=== PATIENT | female | born 1940 | race Caucasian/White ===

== ENCOUNTER → 2017-03-27 13:14 | Outpatient (CLI) | payer MEDICARE, OTHER ==
[2016-04-20 09:37] VITALS: BMI 24.6
[~2017-03-27 13:14] MED LIST: CALCIUM 600+D T1 TA1 PO; CARAFATE1 G/10 ML PO; CYCLOBENZAPRINE10 MG PO; FLORINEF 0.1 M0.1 MG PO; FLUTICASONE PRO16 GM NASAL; LISINOPRIL10 MG PO; MIRALAX17 GM PO; MOBIC7.5 MG PO; NEURONTIN600 MG PO; OMEGA 3 FISH OI1 CAP PO; PRILOSEC20 MG PO; SYNTHROID88 MCG PO; ZANAFLEX4 MG PO; ZESTORETIC 20/21 TAB PO
== END | disposition home or self-care (01) ==
LOC: D.CT 13:14
DX: M51.37 Other intervertebral disc degeneration, lumbosacral region (principal)

== ENCOUNTER 2017-05-20 05:35 | Inpatient (IN) | payer MEDICARE, OTHER ==
[2017-05-19 14:26] LABS: ANION GAP 11.8 mmol/L (8-16); CALCIUM 8.8 mg/dL (8.5-10.1); CARBON DIOXIDE 26.2 mmol/L (21.0-32.0); CREATININE - SERUM 1.5 mg/dL (0.6-1.3)
[2017-05-19 16:08] LABS: BASOPHILS 0.2 % (0-2); EOSINOPHILS 1.4 % (0-7); HEMATOCRIT 36.9 % (36.0-48.0); HEMOGLOBIN 11.7 g/dL (12-16); IMMATURE GRANULOCYTES 0.2 % (0-5); LYMPHOCYTES 26.7 % (15-50); MCH 29.1 pg (26.0-34.0); MCHC 31.7 g/dL (31.0-37.0); MCV 91.8 fL (80.0-100.0); MEAN PLATELET VOLUME 10.9 fL (7.4-10.4); MONOCYTES 7.2 % (2-11); NEUTROPHILS 64.3 % (40-80); RBC 4.02 10x6/uL (4.00-5.40); RDW 12.6 % (11.5-14.5); WBC 5.6 10x3/uL (4.8-10.8)
[2017-05-19 16:10] LABS: PLATELET COUNT 179 10x3/uL (130-400)
[2017-05-20] VITALS (14 sets, daily range): BP systolic 76–134; BP diastolic 32–68; BMI 24.3
[~2017-05-20] VITALS: Ht 170.2 cm; Wt 70.8 kg
[2017-05-20] MEDS ORDERED: MAG 6464 MG PO (06:03)
[2017-05-20] MEDS ORDERED: SUPER B COMPLE150 MG PO (06:04)
--- NOTE | 2017-05-20 09:42 | NUR ---
[address] DR FLOWERS AND DR LAMBERT PRESENT WITH POSITIONING OF PATIENT, PATIENTS ARM CROSSED OVER CHEST PADDED AND SECURED NO IMPINGEMENT NOTED, DR FLOWERS AND DR LAMBERT POSITIONED ARMS, TWORLEY. D5LR USED IN WARMING TRAY FOR BONE GRAFT THAWING, JIA.
--- NOTE | 2017-05-20 12:48 | NUR ---
DR. FRITZ AND DR JENKINS NOTIFIED REGARDING PATIENTS INABILITY TO RAISE HEAD AND SPEAK. DR JENKINS CHECKED TWITCHES, 4 TWITCHES NOTED. PATIENT PLACED ON CO2 MONITOR.
--- NOTE | 2017-05-20 13:44 | NUR ---
PATIENT HAS RECEIVED DEMEROL 25 AND DILAUDID 1 MG. PAIN STILL RATED AN 8/10. PROF NURSING JUDGEMENT TO NOT GIVE MORE PAIN MEDICATION DUE TO BP ISSUES AND O2 ISSUES
[2017-05-20 14:53] LABS: APTT 43.6 SECONDS (22.8-39.4); INR 1.17 (0.85-1.17); PROTIME 14.8 SECONDS (11.6-15.0)
--- NOTE | 2017-05-20 15:00 | NUR ---
RECIEVED PT TO ROOM FROM RECOVERY. VSS. FULL ASSESSMENT COMPLETE PER FLOWSHEET. REFER FOR DETAILS. CALL LIGHT IN REACH. BED IN LOW POSITION.
[2017-05-20 15:13] LABS: BASOPHILS 0 % (0-2); EOSINOPHILS 0.1 % (0-7); HEMATOCRIT 32.5 % (36.0-48.0); HEMOGLOBIN 10.4 g/dL (12-16); IMMATURE GRANULOCYTES 0.2 % (0-5); LYMPHOCYTES 3.9 % (15-50); MCH 29.3 pg (26.0-34.0); MCV 91.5 fL (80.0-100.0); MEAN PLATELET VOLUME 10.6 fL (7.4-10.4); MONOCYTES 1.2 % (2-11); NEUTROPHILS 94.6 % (40-80); PLATELET COUNT 158 10x3/uL (130-400); RBC 3.55 10x6/uL (4.00-5.40); RDW 12.5 % (11.5-14.5)
[2017-05-20 15:14] LABS: WBC 10.8 10x3/uL (4.8-10.8)
--- NOTE | 2017-05-20 15:30 | NUR ---
MORPHINE BATCHING OPERATOR PUMP SET UP AND IN REACH OF PT.
--- NOTE | 2017-05-20 17:30 | NUR ---
DAUGHTER AT BEDSIDE. STATES PAIN HAS IMPROVED FROM A RATE OF 10 TO 5 ON THE NUMERIC SCALE. STATES SHE STILL HAS A LOT OF PAIN WITH MOVEMENT OF LOWER EXT'S. DENIES NEEDS AT THIS TIME. WILL CONT TO ASSESS.
--- NOTE | 2017-05-20 19:30 | NUR ---
REPORT RECEIVED AND CARE ASSUMED. INITIAL SHIFT ASSESSMENT COMPLETED SEE FLOWSHEET. PT AAOX 4 SPEECH CLEAR. STATES SHE HAS PAIN BUT IS ALWAYS IN PAIN AND ITS NOT FROM SURGURY. NOTE STERI STRIP TO LOWER ABD WITH SCANT AMOUNT OF DRIED BLOOD. NO ACTIVE OR RECENT BLEEDING. NO EVIDENCE OF BLEEDING. NOTE B/P HAS BEEN RUNNING LOW WILL MONITOR CLOSELY AND NOTIFY PHYSICIAN IF THIS DOES NOT RESOLVE. PT IS CURRENTLY ON 4L O2. DOES NOT WEAR O2 AT HOME. REDUCED O2 TO 2L WILL MONITOR FOR SPO2 VALUES. DOES HAVE NS AT 30ML RUNNING PRIMARY FLUID FOR MS PUBLICITY EXPERT. PT STATES SHE IS NOT NEEDING THE PUBLICITY EXPERT AT THIS TIME. DID JUST HAVE VISITORS AT BEDSIDE. DENIES NAUSEA PROVIDED WITH FRESH TEA PER REQUEST AND WATER. ENCOURAGED TO DRINK. NOTE IVF AND IV LINES ARE APPROPRIATELY DATED AND LABELED AND NOT DUE TO BE CHANGED AT THIS TIME. PT CONTINUES TO BE MONITORED PER STANDARD CVICU PROTOCOL WITH ALL ALARMS SET AND VERIFIED.
--- NOTE | 2017-05-20 21:10 | NUR ---
SPOKE WITH SANDY AVILA APN REGARDING LOW SBP REPORTED LAST HOUR SBP 87,79,86,76 PT ASYMPTOMATIC AND HAS NOT BEEN USING HER MS WEB MARKETING ASSISTANT NEW ORDERS TO BOLUS WITH 500CC NS AND RETURN CALL IF NOT EFFECTIVE
--- NOTE | 2017-05-20 22:39 | NUR ---
SPOKE WITH DR. FLOWERS TO REPORT CONTINUATION OF LOW B/P CURRENT VS 77/35 HR 90 96% 2LO2 RESP 18. NEW ORDERS TO GIVE 1L NS BOLUS AND CALL BACK IF SBP <90
[2017-05-21] VITALS (26 sets, daily range): BP systolic 85–175; BP diastolic 33–72; BMI 25.3
--- NOTE | 2017-05-21 00:15 | NUR ---
CALL PLACED TO DR. FLWOERS TO NOTIFY OF VS AND URINE OUTPUT VS INTAKE
--- NOTE | 2017-05-21 00:45 | NUR ---
2ND PAGE TO DR. FLOWERS TO NOTIFY HIM OF PT'S RESPONSE TO FLUID CHALLENGE. VS REPORTED OF 87/36 HR 85 URINE OUTPUT ON THIS SHIFT 250 WITH 100CC SINCE LAST FLUID CHALLENGE AND 750 TOTAL SINCE SURGERY REPORTED ON THIS UNIT. INTAKE AHS BEEN 1740 IV WITH 390 PO TOTAL OF 2130CC REPORTED SINCE SURGERY. NEW ORDERS RECEIVED AND NOTED. PT TEACHING DONE HAS BEEN DONE WITH EACH INTERVENTION WITH GOOD COMPREHENSION NOTED.
--- NOTE | 2017-05-21 03:00 | NUR ---
REASSESSMENT COMPLETED SEE FLOWSHEET. PT HAS NOT SLEPT THIS SHIFT AND IS BEGINNING TO SHOW SIGNS OF CONFUSION. PT REASSURED AND REORIENTATED TO SITUATION WITH ONLY MINIMALLY NOTED OUTCOME. PT REMAINED SOMEWHAT FRETFUL ABOUT CLOTHING AND KEYS AND ROOMS. ABLE TO STATE YEAR, PLACE AND WHY SHE IS IN THE HOSPITAL BUT CONFUSED ABOUT WHAT SHE IS TO DO NOW. B/P HAS BEEN WITHIN ACCEPTABLE LIMITS MARGINALLY. PT DENIES PAIN AND HAS NOT USED MS EDITOR CONTINUITY AND SCRIPT ANY THIS SHIFT. WILL CONTINUE TO MONITOR CLOSELY AND PROVIDE SUPPORT
--- NOTE | 2017-05-21 04:00 | NUR ---
PT WITH EYES CLOSED RESP REG AND NONLABORED. I&O COMPLETED AND CHARTED
--- NOTE | 2017-05-21 04:17 | NUR ---
NOTE WEIGHT IS A GAIN BUT NOTE PREVIOUSLY CHARTED WEIGHT IS STATED. THIS IS PER BEDSCALE. NO EDEMA AND LUNGS REMAIN CTA DIMINSHED SLIGHTLY IN BASES ESSENTIALLY NO CHANGE POST FLUID BOLUS
--- NOTE | 2017-05-21 04:27 | NUR ---
DR. FLOWERS CALLED TO CHECK ON PT. ORDER TO REPEAT A 500CC NS BOLUS AND TO GET PT UP IN CHAIR THIS MORNING. ORDERED TO HAVE PHYSICAL THERAPY EVALUATE PT WELL
--- NOTE | 2017-05-21 05:00 | NUR ---
PT ASSISTED X 2 ASSIST UP IN CHAIR AFTER RECEIVING COMPLETE BED BATH. PT TRANSFERRED WELL WITH STEADY GAIT. CALL LIGHT LEFT IN REACH
--- NOTE | 2017-05-21 06:00 | NUR ---
PT WITH BOWEL URGENCY. CONTINENT OF MED LOOSE BROWN STOOL ON BSC BUT STATED "I FEEL DRUNK" NOTE PT'S COLOR IS PALE AND SHE IS WEAK. ASSISTED BACK TO BED CALL LIGHT LEFT IN REACH.
--- NOTE | 2017-05-21 07:15 | NUR ---
PT ALERT AND ORIENTED X4 WITH CONFUSION NOTED, BELIEVES SHE IS HERE FOR VOMITING, THEN ASKED IF SHE REMEMBERS HER SURGERY SHE STATED "OH YEAH AND MY BACK SURGERY" FLUID BOLUS ORDERED PER DR FLOWERS, BOLUSED REMAINING NS AND NEW BAG STARTED PER EMAR, O2 2L NC, ALL OTHER VSS, REPOSITIONED, WILL C ONTINUE TO MONITOR
[2017-05-21 08:49] LABS: BASOPHILS 0 % (0-2); EOSINOPHILS 0 % (0-7); IMMATURE GRANULOCYTES 0.2 % (0-5); LYMPHOCYTES 13.1 % (15-50); MCH 28.8 pg (26.0-34.0); MCHC 31.4 g/dL (31.0-37.0); MCV 91.7 fL (80.0-100.0); MONOCYTES 11.9 % (2-11); NEUTROPHILS 74.8 % (40-80); RBC 2.05 10x6/uL (4.00-5.40); RDW 12.7 % (11.5-14.5)
[2017-05-21 08:50] LABS: HEMATOCRIT 18.8 % (36.0-48.0); HEMOGLOBIN 5.9 g/dL (12-16); PLATELET COUNT 124 10x3/uL (130-400); WBC 6.5 10x3/uL (4.8-10.8)
--- NOTE | 2017-05-21 08:50 | NUR ---
LAB CALLED CRITICAL HGB 5.9 HCT 18.7, DR FLOWERS IN ROOM AND MADE AWARE, NEW ORDERS TO REDRAW AND IF HCT LESS THAN 25 2 UNITS PRBC AND TYPE AND CROSS, LAB JUST CALLED WITH HGB 5 AND HCT 18, DR LAMBERT CALLED AFTER ADMINISTERING MORNING LOVENOX WITH NEW ORDERS TO DISCONTINUE LOVENOX, DISCUSSED PT BP AND FLUID BOLUSES THROUGH NIGHT, WILL CONTINUE TO MONITOR
--- NOTE | 2017-05-21 09:54 | NUR ---
ATTEMPTED TO START 20G PIV TO RFA, NO SUCCESS, NO VEINS VISIBLE OR PALPABLE, VASCULAR ACCESS NURSE PAGED TO ATTEMPT
--- NOTE | 2017-05-21 11:01 | NUR ---
20G PIV INSERTED TO RIGHT HAND AND PRBCS STARTED AT 1000 AFTER VERIFYING WITH ANOTHER NURSE AND ENSURING CONSENT SIGNED ON CHART, DAUGHTER IN ROOM AND AWARE, VSS,DENIES PAIN, LUNG SOUNDS CLEAR, NO FEVER NOTED, WILL CONTINUE TO MONITOR
--- NOTE | 2017-05-21 13:00 | NUR ---
PRBCS INFUSING WITH NO ADVERSE REACTIONS NOTED, DENIES PAIN AND ALL NEEDS, SPOKE WITH DR CURIEL, BRECARMELINA AND PACE THIS AM AND VERIFIED PT TO HAVE A TOTAL OF 3 UNITS OF PRBCS, ALSO DISCUSSED WITH BLOOD BANK WHEN PICKING UP BLOOD, SPOKE WITH CT TO VERIFY THEY ARE AWARE OF CT ORDER, PT REFUSES REPOSITIONING ONTO SIDES AT THIS TIME, WILL CONTINUE TO MONITOR
--- NOTE | 2017-05-21 13:46 | NUR ---
SECOND UNIT OF PRBCS INFUSING, DENIES PAIN, NO ADVERSE REACTIONS NOTED, AFEBRILE, LUNCH SOULDS CLEAR, DIMINISHED IN LOWER LOBES, WILL CONTINUE TO MONITOR
--- NOTE | 2017-05-21 14:58 | NUR ---
PRBCS INFUSING, NO SIGNS OF ADVERSE REACTIONS, AFEBRILE, ATTEMPTED TO GET OUT OF BED AND "GO HOME" BUT APPEARED TO JUST BE MOMETARY CONFUSION SHE THEN STATED "WELL I KNOW I HAD SURGERY SO I GUESS I SHOULD STAY"
--- NOTE | 2017-05-21 15:25 | NUR ---
PT TO CT WITH STAFF
--- NOTE | 2017-05-21 17:02 | NUR ---
SPOKE WITH DR CURIEL, PT CT SHOWS RETROPERITONEAL BLEED, STAT H&H ORDERED, CALLED DR FLOWERS SPOKE WITH NURSE AWAITING CALL BACK
--- NOTE | 2017-05-21 17:21 | CN ---
PATIENT NAME:WON DOWELL MEDICAL RECORD: [id number] : 39 LOCATION:[id number] ADMIT DATE: 05/20/17 ACCOUNT: [id number] CONSULTING PHYSICIAN: GURWINDER CURIEL MD REFERRING PHYSICIAN: ZACKARY FLOWERS MD DATE OF CONSULTATION: 05/21/2017 HISTORY OF PRESENT ILLNESS: This is a very pleasant 76-year-old white female, who is in CV ICU 3 was admitted to the hospital for lumbar stenosis by Dr. Flowers and surgical intervention was obtained. Consultation has been requested for medical management. The patient has had a longstanding history of lumbar stenosis and difficulty ambulation. She underwent surgical revision with an anterior approach by Dr. Flowers yesterday. The patient is presently resting in the ICU comfortably, is getting transfused for low H&H and is in no acute distress, able to answer all questions and her family members are present as well. PAST MEDICAL HISTORY: Significant for hypertension, osteoarthritis, GERD, lumbar stenosis, hypothyroidism, chronic pain, hypothyroidism, neuropathy, dependent edema, osteopenia. PAST SURGICAL HISTORY: Includes trauma to her right index finger, appendectomy, cholecystectomy, low back fusion 10 years ago. ALLERGIES: THE PATIENT IS ALLERGIC TO AMOXICILLIN, BACLOFEN, AND HYDROCODONE. MEDICATIONS: Listed on MAR sheet. SOCIAL HISTORY: The patient does not smoke, does not drink any alcohol. FAMILY HISTORY: Does have a family history of diabetes. REVIEW OF SYSTEMS: Indicates no fever or chills. No neuropathy. She does have some pain in her back, but is controlled. Increased bruising recently postoperatively, otherwise no difficulty. PHYSICAL EXAMINATION: VITAL SIGNS: Vital signs at the time of history and physical as below. GENERAL: She is a well-developed, well-nourished, pleasant 76-year-old white female that is resting comfortably. Pale skin is noted. No acute distress. HEENT: Pupils equal, round, and reactive to light. Extraocular movements are intact. Oral cavity and oropharynx is otherwise clear. NECK: No cervical or pharyngeal adenopathy. No nuchal rigidity. LUNGS: Coarse breath sounds heard in the base, clears with coughing. HEART: Regular rate and rhythm with a I/ systolic ejection murmur. ABDOMEN: Soft and nontender. Guarding is present at the surgical insertion site. She has some bruising over the laparoscopic areas. Has evidence of some bruising. Positive bowel sounds. No masses. 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 Osteoarthritic changes noted, otherwise no difficulty. NEUROLOGIC: Cranial nerves II through XII grossly intact. Muscle strength in upper and lower extremities is 5/5. Sensory is intact in all 4 extremities. NEUROLOGIC: She is able to move all 4 extremities. ASSESSMENT: CONSULT REPORT [id number] DELMERMARKADINVinita WALLACE 1. Status post lumbar stenosis intervention by neurosurgery. 2. Anemia postoperatively. 3. Hypertension. 4. Hypothyroidism. 5. Osteoarthritis. 6. Bruising. PLAN: The patient will get transfused 2 units of packed red blood cells. We will monitor her fluid status. She has had several liters of fluid over the evening. We will check pulmonary toilet, check abdominal ultrasound for any retroperitoneal bruising, and check laboratory appropriately. Thanks for the consultation. TRANSINT:[id number] Voice Confirmation ID: [id number] DOCUMENT ID: [id number] GURWINDER CURIEL MD at 1721 CC: [id number] DICTATION DATE: 05/21/17 1102 SUPERVISOR SHIP MAINTENANCE SERVICES: 05/21/17 1120 ADM IN [facility] [address] [id number]
--- NOTE | 2017-05-21 17:30 | NUR ---
CALL RECEIVED FROM SANDY PEDRO OF DR. CURIEL WHO STATES TO KEEP 3 UNITS PRBC AHEAD AT ALL TIMES. GER IN BLOOD BANK NOTIFIED OF THIS
--- NOTE | 2017-05-21 17:32 | NUR ---
AGAIN CALLED DR [facility] WITH NO ANSWER, CALLED [facility] AND THEY ARE PAGING DR FLOWERS
--- NOTE | 2017-05-21 17:44 | NUR ---
SPOKE WITH DR FLOWERS WHO SAID CALL DR LAMBERT BUT GAVE NO NEW ORDERS. PAGED FAUSTO.
--- NOTE | 2017-05-21 17:54 | NUR ---
DR LAMBERT RETURNED CALL NO NEW ORDERS
--- NOTE | 2017-05-21 17:55 | NUR ---
DR FLOWERS CALLED AFTER LOOKING AT CT, SAID HE SAW NOTHING OF CONCERN
[2017-05-21 18:17] LABS: HEMOGLOBIN 7.4 g/dL (12-16)
[2017-05-21 18:18] LABS: HEMATOCRIT 22.7 % (36.0-48.0)
--- NOTE | 2017-05-21 18:43 | NUR ---
SPOKE WITH SANJEEV PEDRO ABOUT CRITICAL HGB 7.4 AND JUST BEGINNING THIRD BAG OF PRBCS, SHE STATED TO REDRAW H&H AFTER ADMINISTERING BAG. WHEN ON THE PHONE WITH DR FLOWERS AND FAUSTO DISCUSSED INCREASING CONFUSION PT THINKS SHE NEEDS IN ANOTHER BED AND ATTEMPTS TO SELF TRANFER, PT REORIENTED AND DAUGHTER AT BEDSIDE, DENIES PAIN, HAS NOT BEEN USING MORPHINE GIS GEOGRAPHER, VSS, BED ALARM ON, WILL CONTINUE TO MONITOR
--- NOTE | 2017-05-21 20:00 | NUR ---
DR. LAMBERT ON UNIT DISCUSSED INCREASING CONFUSION, HALLUCINATION, AGGITATION AND ANXIETY NEW ORDERS RECEIVED AND NOTED
--- NOTE | 2017-05-21 20:44 | NUR ---
PT HAS COMPLETED HER 3RD UNIT OF PRBC LAB NOTIFIED OF NEED FOR H&H WELL PLATLETTS AND FFP. DAUGHTER IS AT BEDSIDE PT IS SEVERELY CONFUSED. INSISTS SHE IS AT HOME ON THE COUGH. WAS TRYING TO PUT SPO2 DETECTOR IN MOUTH SAYING SHE WAS TRYING IT ON FOR SIZE. ATTEMPTING TO CLIMB OUT OF BED AND PULLING AT WIRES AND LINES. BED ALARM IS ON DAUGHTER IS AT BEDSIDE AND BED IS DIRECT VISION OF NURSES STATION. ENVIRONMENT IS MADE QUIET AND CALM POSSIBLE AND PT REPEATEDLY REORIENTATED TO REALITY WITH NO SUCCESS NOTED.
--- NOTE | 2017-05-21 21:15 | NUR ---
DR. LAMBERT CALLED AND DISCUSSED THE ELEVATING OF CONFUSION, ANXIETY AND HR 140'S-150'S RELATED TO AGGIATION AND ANXIETY. NEW ORDERS RECEIVED AND NOTED. DAUGHTER IN ROOM. PT AND DAUGHTER MADE AWARE OF ORDERS
[2017-05-21 21:28] LABS: HEMATOCRIT 32.2 % (36.0-48.0); HEMOGLOBIN 10.7 g/dL (12-16)
--- NOTE | 2017-05-21 22:40 | NUR ---
SPOKE WITH DR. FLOWERS TO NOTIFY THAT HR 150'S SVT INCREASED AGGITATION AND IRRITATION WITH ONLY SHORT MINIMAL RESPONSE TO HALDOL. NEW ORDERS RECEIVED AND NOTED
[2017-05-22] VITALS (24 sets, daily range): BP systolic 113–155; BP diastolic 47–91
--- NOTE | 2017-05-22 01:13 | NUR ---
PT CONTINUES WITH AGITATION AND ANXIETY AND UNABLE TO REDIRECT. CONTINUES TO BE DISORIENTATED AND ATTEMPTING TO GET OOB ORDERS TO REPEAT THE VALIUM 5MG X [address] FLOWERS FOLLOWED PER HIS INSTRUCTIONS
--- NOTE | 2017-05-22 01:40 | NUR ---
PT CONTINUES TO HAVE SEVERE AGITAITON. CALL PLACED TO DR. FLOWERS TO NOTIFY PREVIOUS MEDS INEFFECTIVE. NOTIFIED PT WITH HR 150'S SVT, WHEN PT CALMS DOWN AND HEART RATE DROPS IN 130'S IT IS SINUS TACHYCARDIA. PT IS TOO RESTLESS AND AGITATED TO ALLOW FOR EKG AT THIS TIME. PT REPORTED TO HAVE HAD A TOTAL OF 14MG MORPHINE, HALDOL 5MG AND VALIUM 10MG. LAST DOSE OF HALDOL APPROX 2130. NEW ORDERS RECEIVED AND NOTED.
--- NOTE | 2017-05-22 01:50 | NUR ---
PT HAS BEEN GIVEN HALDOL IM SPO2 < 90% O2 APPLIED AND CHANGED TO OXIMIZER. PT REMAINS AGGITATED AND COMBATIVE. HAS BEEN A 1:1 CARE THIS ENTIRE SHIFT DUE TO HER AGITATION AND INABILITY TO MAINTAIN PERSONAL SAFETY WITHOUT CONSTANT SUPERVISION AND INTERVENTION.
--- NOTE | 2017-05-22 03:30 | NUR ---
PT PLACED IN BILAT WRIST RESTRAINTS, PT REPEATEDLY REMOVING EQUIPMENT NECESSARY TO MAINTAIN AND IMPROVE CARE. EXPLAINED TO PT WHO DOES NOT VERBALIZE COMPREHENSION
--- NOTE | 2017-05-22 03:35 | NUR ---
CALL PLACED TO DR. CURIEL TO DISCUSS CONTINUED ELEVATED HR. EKG HAS BEEN DONE WHICH SHOWS ST. CALL RETURNED BY SANJEEV AVILA APN THOROUGHLY DISCUSSED PT'S EVENING, NEW ORDERS RECEIVED, MEDS GIVEN AND PT'S CURRENT STATE OF CONTINUED AGGITAION BUT ON A DECREASED LEVEL, O2 SAT BEING MAINTIANTED AT THIS TIME PER OXIMER 15L. ORDERS RECEIVED TO DO H&H AND GIVE ATIVAN 0.5 IV
--- NOTE | 2017-05-22 03:40 | NUR ---
CALL PLACED TO DR. FLOWERS TO VERIFY ORDERS RECEIVED AND UPDATE ON PT'S CONDITION AND RESPONSE TO MEDICATIONS. NEW ORDERS RECEIVED TO NOT GIVE THE ATIVAN BUT TO GIVE HALDOL 2.5 IM AND LOPRESSOR.
--- NOTE | 2017-05-22 03:56 | NUR ---
HALDOL 2.5MG IM HELD AT THIS TIME. PT DOES CONTINUE WITH SOME AGGITATION BUT IN A LESSER DEGREE WILL MONITOR
[2017-05-22 04:01] LABS: BASOPHILS 0 % (0-2); EOSINOPHILS 0 % (0-7); HEMATOCRIT 30.1 % (36.0-48.0); HEMOGLOBIN 10.1 g/dL (12-16); IMMATURE GRANULOCYTES 0.4 % (0-5); LYMPHOCYTES 8.9 % (15-50); MCH 29.9 pg (26.0-34.0); MCHC 33.6 g/dL (31.0-37.0); MCV 89.1 fL (80.0-100.0); MEAN PLATELET VOLUME 10.1 fL (7.4-10.4); MONOCYTES 7.1 % (2-11); NEUTROPHILS 83.6 % (40-80); PLATELET COUNT 146 10x3/uL (130-400); RBC 3.38 10x6/uL (4.00-5.40); WBC 7.8 10x3/uL (4.8-10.8)
[2017-05-22 04:08] LABS: INR 1.04 (0.85-1.17); PROTIME 13.5 SECONDS (11.6-15.0)
[2017-05-22 04:09] LABS: APTT 29.6 SECONDS (22.8-39.4)
--- NOTE | 2017-05-22 04:12 | NUR ---
CALL PLACED TO DR. FLOWERS TO DISCUSS PT'S CONDITION HR 145-150, B/P 143/73, O2 SAT 88-90% 15L OXIMIZER, LUNGS BEGINING TO SOUND "WET" _303 FLUID BALANCE AND THE WITHHOLDING OF THE LAST ORDERED HALDOL. NEW ORDERS RECEIVED AND NOTED
--- NOTE | 2017-05-22 04:15 | NUR ---
DECREASED IVF TO 10ML/HR
[2017-05-22 04:27] LABS: ALBUMIN 3.2 g/dL (3.4-5.0); ANION GAP 14.9 mmol/L (8-16); BILIRUBIN - TOTAL 0.9 mg/dL (0.2-1.3); CALCIUM 8.4 mg/dL (8.5-10.1); CARBON DIOXIDE 23.1 mmol/L (21.0-32.0); CREATININE - SERUM 1.2 mg/dL (0.6-1.3); PROTEIN - SERUM 6.1 g/dL (6.4-8.2); THYROID STIMULATING HORMONE 1.9 uIU/mL (0.36-3.74)
--- NOTE | 2017-05-22 04:30 | NUR ---
RT CALLED TO BEDSIDE UNABLE TO MAINTAIN ADEQUATE OXYGENATION WITH OXIMIZER PARTLY IN DUE TO PT REPEATEDLY REMOVING DEVICE AND TAKING TOO LONG TO RECOVER BACK TO ACCEPTABLE LEVELS. NRB PLACED. PT IS IN RESTRAINTS BUT REMAINS 1:1 FOR HER SAFETY
--- NOTE | 2017-05-22 05:57 | NUR ---
PT HAS HAD A 250ML URINE OUTPUT SINCE LASIX. LEFT LOBES SOUND CLEARER BUT RIGHT LOBES STILL WITH CRACKLES. PT REPOSTIONED FREQUENTLY UP IN BED. NURSE AT BEDSIDE TO PROVIDE SAFE PT CARE. PT CONTINUES TO ATTEMPT TO REMOVE EQUIPMENT IV, F/C, TELEMETRY, O2 ETC. DOES NOT UNDERSTAND NECESSITY FOR MAINTAINING SUCH
--- NOTE | 2017-05-22 06:54 | NUR ---
CALL PLACED TO MILTON RANDLE TO UPDATE ON PT'S CONDITION
--- NOTE | 2017-05-22 07:00 | NUR ---
REPORT RECIEVED ON PT SEE SHIFT ASSESSMENT
--- NOTE | 2017-05-22 07:15 | NUR ---
PT RECIEVED ALERT AND CONFUSED, ATTEMPTING TO CLIMB OUT OF BED, BILAT SOFT WRIST RESTRAINTS IN PLACE, WHEN REPOSITIONING PT AND ATTEMPTING TO REORIENT TO SITAUATION SHE STATED "KEEP IT UP BECAUSE IM GONNA SLAP YOUR FACE HARD I CAN" 100% NONREBREATHER IN PLACE, WHEN REMOVED OR LOWERED SPO2 DESATS INTO 70-80S, PIV TO RIGHT HAND AND LFA CDI, DENIES PAIN, REPOSITIONED AND LINENS CHANGED, HR 110'S SINUS TACH, VSS, WILL CONTINUE TO MONITOR
--- NOTE | 2017-05-22 07:20 | NUR ---
PAGED DR SWARTZ
--- NOTE | 2017-05-22 08:04 | NUR ---
SPOKE WITH DR SWARTZ WHO SAID TO CALL THE CLINIC TO PAGE GREETER DR, SPOKE WITH CLINIC WHO ARE PAGING DR TONY WHO IS GREETER
--- NOTE | 2017-05-22 09:04 | NUR ---
SPOKE WITH DR LAMBERT, UPDATED ABOUT LAST NIGHTS EVENTS AND CONITNUED CONFUSION AND COMBATIVE BEHAVIOR, NO NEW ORDERS
--- NOTE | 2017-05-22 09:19 | NUR ---
SPOKE WITH DR TONY WHO SAID DR CHURCHILL IS ACTIVITIES THERAPIST, PAGED DR CHURCHILL
--- NOTE | 2017-05-22 09:23 | NUR ---
CHANGED TO OXYMISER PER REQUEST, PT SPO2 96, IN ROOM AND WILL MONITTOR
--- NOTE | 2017-05-22 09:36 | NUR ---
PT DESAT INTO LOW 80S, REPLACED NONREBREATHER
--- NOTE | 2017-05-22 10:11 | NUR ---
SPOKE WITH DR CHURCHILL, ORDERS FOR 5MG LOPRESSOR NOW AND HE WILL REEVAL PT, SPOKE WITH DR FLOWERS- ORDERS TO DC GUM WORKER, CONSULT PSYCH AND PULMONOLOGY, FAXED CONSULT TO [facility] AND SPOKE WITH SPENCER TO CONFIRM, SPOKE WITH DR HUNTER, ORDERS FOR CXR AND ABGS, SPOKE WITH RT TO OBTAIN ABGS
--- NOTE | 2017-05-22 11:12 | NUR ---
PT HR 113, DR CURIEL SPOKE WITH PT AND FAMILY, AWARE OF ALL OF NIGHTS EVENTS, NO NEW ORDERS
--- NOTE | 2017-05-22 12:48 | NUR ---
* Is the patient Alert and Oriented? Yes 0 * How many steps to enter\exit or inside your home? 1 0 * PCP Dr. Lancaster 0 * [facility]acy [facility] 0 * Preadmission Environment Home Alone 0 * ADLs Independent 0 * List name and contact numbers for known caregivers / representatives who currently or will assist patient after discharge: Demetrius Ni [phone] 0 * Additional services required to return to the preadmission environment? Yes 0 * Can the patient safely return to the preadmission environment? Yes 0 * Has this patient been hospitalized within the prior 30 days at any hospital? No Patient Name: WON DOWELL Admission Status: Elective Accout number: [id number] Admission Date: 05-20-2017 : 1940 Admission Diagnosis:SPINAL STENOSIS, LUMBAR REGION WITHOUT NEUROGENIC SAVAGE Attending: ZACKARY FLOWERS Current LOS: 2 Primary Insurance: MEDICARE A & B Discharge Planning Comments: CM met with daughter, Carlene, at bedside to assess dc plans/needs. Carlene states patient lives alone and was independent with all ADL's prior to admission. She does not use any assistive devices for mobility and has not had home health services in the past. Daughter is open to rehab & home health options @ discharge if necessary. CM will follow & assist as needed. Dead Mail Checker: Becka Hamilton
--- NOTE | 2017-05-22 13:11 | NUR ---
PT HAS HAD FLUIDS OFFERED BUT IS INABLE TO KEEP NONREBREATHER OFF FOR MORE THAN A FEW SECONDS, PT DAUGHTER AT BEDSIDE AND UPDATE PROVIDED, READ DR COOPER NOTE THAT HE SUSPECTS THE CONFUSION WILL RESOLVE SHORTLY, PT REPOSITIONED, VSS, WILL CONTINUE TO MONITOR
--- NOTE | 2017-05-22 14:08 | NUR ---
TROPONIN 1.806, CALLED DR HUNTER HE ORDERED LAB AND DR CHURCHILL, WILL REDRAW IN [address] CHURCHILL
--- NOTE | 2017-05-22 15:20 | NUR ---
PT CHANGED TO OXYMYZER 15L TOLERATING WELL SPO2 75
--- NOTE | 2017-05-22 17:05 | NUR ---
PT REPOSITIONED, VSS, ATTEMPTED TO REOREINT, CONTIUES TO BE CONFUSED AND UNABLE TO ANSWER QUESTIONS BUT IS ABLE TO RESPOND APPROPRIATELY, FED DINNER, TOLERATED WELL, WILL CONTINUE TO MONITOR
--- NOTE | 2017-05-22 19:00 | NUR ---
REPORT REC'D. PATIENT CARE ASSUMED. ASSESSMENT COMPLETED PER FLOW SHEETS. PT AWAKE AND ALERT TO NAME, AND PLACE. FOLLOWS COMMANDS. DENIES ANY DISCOMFORT AT THIS TIME. LUNG SOUNDS CLEAR/ CRACKLES TO ULB WITH DIMINISHED TO LLB, UNLABORED. ST ON CM WITH HR AT 117. BS HYPOACTIVE X4 QUADR, TENDER AT INCISION SITE. BRUISES NOTED. FONTENOT INTACT TO GRAVITY WITH CL/Y DRAINAGE TO BAG. PPP. REORIENTED TO TIME AND SITUATION. CALL LIGHT IN REACH. CPOC.
--- NOTE | 2017-05-22 20:30 | NUR ---
PT'S DAUGHTER CALLED. UPDATED AND QUESTIONS ANSWERED.
--- NOTE | 2017-05-22 21:00 | NUR ---
NO VISITORS AT THIS TIME. REPOSITIONED FOR COMFORT. PILLOWS IN USE FOR SUPPORT. CALL LIGHT IN REACH. CONT TO MONITOR.
--- NOTE | 2017-05-22 21:55 | NUR ---
HEIDI DIE REPAIRER FORGING CALLED VIA PHONE REGARDING TROPONIN LEVEL. NO CALL BACK RECEIVED. CHARGE NURSE AWARE.
--- NOTE | 2017-05-22 23:00 | NUR ---
REASSESSMENT COMPLETED .SEE FLOW SHEETS FOR ALL FINDINGS. NO ACUTE SIGNS NOTED ON PT'S CONDITION. VSS. WILL CONT TO MONITOR.
[2017-05-23] VITALS (24 sets, daily range): BP systolic 116–149; BP diastolic 62–98
--- NOTE | 2017-05-23 01:00 | NUR ---
PT RESTING QUIETLY WITHOUT DISTRESS. VSS. NO NEEDS VOICES. CALL LIGHT IN REACH. CPOC.
--- NOTE | 2017-05-23 03:00 | NUR ---
REASSESSMENT COMPLETED. SEE FLOW SHEETS FOR ALL FINDINGS. PT RESTING WITHOUT DISTRESS. VSS. NO NEEDS VOICES AT THIS TIME. CPOC.
[2017-05-23 05:54] LABS: BASOPHILS 0 % (0-2); EOSINOPHILS 0.3 % (0-7); HEMATOCRIT 30.3 % (36.0-48.0); HEMOGLOBIN 10.1 g/dL (12-16); IMMATURE GRANULOCYTES 0.3 % (0-5); LYMPHOCYTES 10.4 % (15-50); MCH 29.9 pg (26.0-34.0); MCHC 33.3 g/dL (31.0-37.0); MCV 89.6 fL (80.0-100.0); MEAN PLATELET VOLUME 10.5 fL (7.4-10.4); MONOCYTES 8.7 % (2-11); NEUTROPHILS 80.3 % (40-80); PLATELET COUNT 145 10x3/uL (130-400); RBC 3.38 10x6/uL (4.00-5.40); RDW 14.5 % (11.5-14.5)
[2017-05-23 06:00] LABS: WBC 10.4 10x3/uL (4.8-10.8)
[2017-05-23 06:24] LABS: ANION GAP 12.7 mmol/L (8-16); CALCIUM 8.3 mg/dL (8.5-10.1); CARBON DIOXIDE 28.6 mmol/L (21.0-32.0)
[2017-05-23 06:27] LABS: POTASSIUM - SERUM 3.3 mmol/L (3.5-5.1)
--- NOTE | 2017-05-23 09:16 | NUR ---
DR. FLOWERS IN ROOM WITH PATIENT, DAUGHTER AT BEDSIDE.
--- NOTE | 2017-05-23 10:01 | CN ---
PATIENT NAME:WON DOWELL MEDICAL RECORD: [id number] : 38 LOCATION:[facility] ADMIT DATE: 05/20/17 ACCOUNT: [id number] CONSULTING PHYSICIAN: GARLAND GARRISON III, MD REFERRING PHYSICIAN: ZACKARY FLOWERS MD DATE OF CONSULTATION: 05/22/2017 FINDINGS: A pleasant 76-year-old white female who was admitted to the hospital for surgical intervention for chronic lumbar stenosis. Postoperatively, the patient has developed severe agitation and confusion consistent with postoperative delirium. The patient has been quite combative and agitated throughout the night and has required the use of p.r.n. neuroleptic and anxiolytic medications. At present time, she has p.r.n. Haldol and diazepam ordered. At the present time, the patient remains in soft wrist restraints because of her agitation and the fact that she has attempted to remove medical equipment. She has threatened to strike staff members as well. The patient has no documented previous psychiatric history. She does have several ongoing medical problems including hypertension, osteoarthritis, gastroesophageal reflux disease, hypothyroidism, and neuropathy. On exam today, the patient is fortunately in a quieter episode. She remains in restraints, but she orients well to the examiner. She is able to respond appropriately to very simple questions and statements. She, for example, recalls that Dr. Lancaster is her physician and describes him as a "very nice man." She complains that she does not have anything to eat at the moment. She remains confused as to her location. Mood at the moment is euthymic; however, throughout the night, the patient has been extremely irritable and volatile. Affect has been quite brittle. Speech as noted above. Content of thought has exhibited some nonspecific paranoid ideation. The patient is oriented to person and the fact that she is in the hospital. She is not correctly oriented as to the day of the week. Intermediate and short-term recall are showing some significant deficits at the moment. DIAGNOSTIC IMPRESSION: AXIS I: Postoperative delirium, multiple factors involved including the stress of surgery, anemia, and hypoxia. RECOMMENDATIONS: 1. Would continue on with the current treatment plan in terms of p.r.n. Haldol and diazepam. I suspect that the patient will resolve within a few days if she follows the typical course. 2. We will be happy to follow with you. TRANSINT:[id number] Voice Confirmation ID: [id number] DOCUMENT ID: [id number] CONSULT REPORT [id number] WON DOWELL III, GARLAND Oneill MD at 1001 CC: [id number] DICTATION DATE: 05/22/17 1241 REWINDER: 05/22/17 1301 ADM IN [facility] [address] [place] [address]
--- NOTE | 2017-05-23 10:14 | NUR ---
PATIENT UP TO CHAIR PER PHYSICAL THERAPY, AND TOLERATED WELL.
--- NOTE | 2017-05-23 13:00 | NUR ---
REHAB NOTE- ACUTE INPATIENT REHAB PRESCREEN ORDER RECEIVED. VISITED WITH THE PATIENT & FAMILY PRESENT IN ROOM. SHE IS VERY INTERESTED IN [facility] WHEN READY FOR DISCHARGE FROM THE ACUTE HOSPITAL. THE FAMILY STATED THEY BELIEVED IT WOULD BE FRIDAY. WILL AWAIT AND SEE HOW THE PATIENT DOES PHYSICALLY WITH PHYSICAL THERAPY. WILL CONTINUE TO FOLLOW AT THIS TIME. CHERY GALLEGOS RN CLINICAL LIAISON, [facility]
--- NOTE | 2017-05-23 16:56 | EC ---
PATIENT:WON DOWELL DATE OF SERVICE: 05/20/17 SEX: F MEDICAL RECORD: [id number] DATE OF : 39 LOCATION:[place] [address] AGE OF PATIENT: 76 ADMISSION DATE: 05/20/17 REFERRING PHYSICIAN: INTERPRETING PHYSICIAN: KI HARMON MD ECHOCARDIOGRAM REPORT ECHO CHARGES 4 ECHO COMPLETE CLINICAL DIAGNOSIS: CHF ECHOCARDIOGRAPHIC MEASUREMENTS (adult normal given) AC root (d.<3.7cm) 3.2 cm LV Septum d (<1.2 cm> 1.2 cm Valve Excursion 1.3 cm LV Septum (systole) 1.3 cm Left Atria (s.<4.0cm> 4.1 cm LVPW d(<1.2cm) 1.1 cm RV (d.<2.3cm) 3.1 cm LVPW (sytole) 1.2 cm LV diastole(<5.6CM) 6.4 cm MV E-F(>70mm/sec) cm LV systole 5.7 cm LVOT Diameter 2.0 cm MV exc.(>10mm) cm Est.ejection fraction (50-75%) % Pericardial Effusion N DOPPLER: LVIT cm/sec A 107 cm/sec E cm/sec LA cm/sec RVSP 37 mmHg LVOT 84 cm/sec AOP1/2T m/s Asc. Ao 73 cm/sec RVOT cm/sec RA cm/sec PA cm/sec AV Gradient Peak 2.11 mmHg AV Mean 0.97 mmHg AV Area 4.3 cm MV Gradient Peak mmHg MV Mean mmHg MV Area cm COMMENTS: Cardiac Cath Technician: Toño DUQUE Core Winder: 2 Dr. Welsh TAPE# PACS DATE OF SERVICE: 05/22/2017 PROCEDURE: Echocardiogram. FINDINGS: 1. Left ventricular chamber size is mildly dilated. Left ventricular systolic function is markedly reduced, overall ejection fraction 15% to 20%. 2. Left atrium is enlarged at 4.1 cm. Right atrium and right ventricular chamber sizes are as well mildly dilated. 3. Valvular structures have normal structure and motion. ECHOCARDIOGRAM REPORT [id number] WON DOWELL 4. Doppler interrogation reveals fcil-zl-[id number] mitral regurgitation, mild to moderate tricuspid regurgitation, no other valvular insufficiency or stenosis. Pulmonary systolic pressure is normal estimated at 37 mmHg. 5. No evidence of pericardial effusion or left ventricular thrombus. TRANSINT:[id number] Voice Confirmation ID: [id number] DOCUMENT ID: [id number] KI HARMON MD at 1656 CC: [id number] DICTATION DATE: 05/22/17 1332 SENIOR CONSTRUCTION PROJECT MANAGER: 05/22/17 1342 ADM IN [facility] [address] [place] [id number]
--- NOTE | 2017-05-23 19:30 | NUR ---
REPORT RECVD. CARE ASSUMED. INITIAL ASSMNT COMPLETED. SEE FLOWSHEET FOR ALL FINDINGS. AWAKE AND AOX4. PERRLA. RESP EVEN AND UNLABORED. LUNGS CTA, DIM IN BASES. SPO2 97% ON O2 AT [address] ON THE MONITOR. PULSES PALP. TEDS/SCDS IN USE. AFEBRILE. ABD SOFT, BS HYPO X4. INCISION INTACT. F/C PATENT WITH CLEAR YELLOW UOP. HOB UP. C/L IN REACH. CONT CURRENT POC.
--- NOTE | 2017-05-23 20:00 | NUR ---
K+ LEVEL WITHIN PARAMETERS RECHECK IN AM
--- NOTE | 2017-05-23 21:00 | NUR ---
SPOKE WITH DAUGHTER, RAZIA, VIA PHONE. UPDATE GIVEN, REPOSITIONED PT SIDE LYING, PRN ULTRAM GIVEN FOR INCREASED PAIN AND TO PROMOTE REST. VSS. HOB UP. C/L IN REACH. CONT CURRENT POC.
--- NOTE | 2017-05-23 23:30 | NUR ---
REASSESSMENT COMPLETED. SEE FLOWSHEET FOR ALL FINDINGS. RESTING.AOX4. PERRLA. RESP EVEN AND UNLABORED. LUNGS CTA, DIM IN BASES. SPO2 97% ON O2 AT [address] ON THE MONITOR. PULSES PALP. TEDS/SCDS IN USE. AFEBRILE. ABD SOFT, BS HYPO X4. INCISION INTACT. F/C PATENT WITH CLEAR YELLOW UOP. DENIES NEEDS/DISCOMFORT. HOB UP. C/L IN REACH. CONT CURRENT POC.
[2017-05-24] VITALS (24 sets, daily range): BP systolic 97–138; BP diastolic 48–80
--- NOTE | 2017-05-24 01:15 | NUR ---
ATTEMPING TO KEEP PT POSITIONED OFF OF BACK. EACH TIME I RETURN TO ROOM PT HAS POSITIONED SELF ON BACK. STATES, " I DO NOT LIKE LAYING ON MY SIDE. IT HURTS MY HIPS. " TEACHING R/T SKIN INTEGRITY. VERBALIZES UNDERSTANDING. VSS. HOB UP. DENIES NEEDS. CONT CURRENT POC.
--- NOTE | 2017-05-24 02:30 | NUR ---
REFUSED TYLENOL PO. STATES, "I DO NOT WANT THAT RIGHT NOW. I WANT TO SLEEP. LEAE ME BE. "
[2017-05-24 04:22] LABS: BASOPHILS 0 % (0-2); HEMATOCRIT 31.5 % (36.0-48.0); HEMOGLOBIN 10.6 g/dL (12-16); IMMATURE GRANULOCYTES 0.1 % (0-5); LYMPHOCYTES 12.4 % (15-50); MCH 30.1 pg (26.0-34.0); MCHC 33.7 g/dL (31.0-37.0); MCV 89.5 fL (80.0-100.0); MEAN PLATELET VOLUME 10.7 fL (7.4-10.4); MONOCYTES 10.1 % (2-11); NEUTROPHILS 75.4 % (40-80); PLATELET COUNT 165 10x3/uL (130-400); RBC 3.52 10x6/uL (4.00-5.40); RDW 14.4 % (11.5-14.5); WBC 8.2 10x3/uL (4.8-10.8)
[2017-05-24 05:06] LABS: ALBUMIN 2.6 g/dL (3.4-5.0); ANION GAP 12.3 mmol/L (8-16); BILIRUBIN - TOTAL 0.93 mg/dL (0.2-1.3); CALCIUM 8.9 mg/dL (8.5-10.1); CARBON DIOXIDE 27.2 mmol/L (21.0-32.0); POTASSIUM - SERUM 3.5 mmol/L (3.5-5.1); PROTEIN - SERUM 6.4 g/dL (6.4-8.2)
--- NOTE | 2017-05-24 05:29 | NUR ---
RESTING WITH EYES CLOSED. VSS. ST ON THE MONITOR. NO NEEDS VOICED. CONT CURRENT POC.
--- NOTE | 2017-05-24 19:15 | NUR ---
REPORT RECVD. CARE ASSUMED. INITIAL ASSMNT COMPLETED. SEE FLOWSHEET FOR ALL FINDINGS. AWAKE AND AOX4. PERRLA. RESP EVEN AND UNLABORED. LUNGS CTA, DIM IN BASES. SPO2 97% ON O2 AT 2 LPM NC. SR ON THE MONITOR. PULSES PALP. TEDS/SCDS IN USE. AFEBRILE. ABD SOFT, BS ACTIVE X4. INCISION INTACT. F/C PATENT WITH CLEAR YELLOW UOP. HOB UP. C/L IN REACH. CONT CURRENT POC.
--- NOTE | 2017-05-24 21:00 | NUR ---
HS MEDS GIVEN. PRN ULTRAM GIVEN FOR PAIN CONTROL AND TO PROMOTE REST. PER REQUEST, MINIMAL ASSIST TO CHAIR AT BEDSIDE. VSS. DAUGHTER, RAZIA, AT BEDSIDE. UPDATE GIVEN. CONT CURRENT POC.
--- NOTE | 2017-05-24 23:15 | NUR ---
REASSESSMENT COMPLETED. SEE FLOWSHEET FOR ALL FINDINGS. RESTING.AOX4. PERRLA. RESP EVEN AND UNLABORED. LUNGS CTA, DIM IN BASES. SPO2 97% ON O2 AT 2 LPM NC. SR ON THE MONITOR. PULSES PALP. TEDS/SCDS IN USE. AFEBRILE. ABD SOFT, BS ACTIVE X4. INCISION INTACT. F/C PATENT WITH CLEAR YELLOW UOP. DENIES NEEDS/DISCOMFORT. HOB UP. C/L IN REACH. CONT CURRENT POC.
[2017-05-25] VITALS (23 sets, daily range): BP systolic 90–128; BP diastolic 49–84
--- NOTE | 2017-05-25 01:15 | NUR ---
RESTING WITH NO DISTRESS. VSS. DENIES DISCOMFORT. REQUESTS TO BE ALLOWED TO SLEEP. REFUSES 2AM TYLENOL. C/L IN REACH. BED ALARM ON. CONT CURRENT POC.
--- NOTE | 2017-05-25 03:15 | NUR ---
REASSESSMENT COMPLETED. SEE FLOWSHEET FOR ALL FINDINGS. RESTING.AOX4. PERRLA. RESP EVEN AND UNLABORED. LUNGS CTA, DIM IN BASES. SPO2 95% ON RA. SR ON THE MONITOR. PULSES PALP. TEDS/SCDS IN USE. AFEBRILE. ABD SOFT, BS ACTIVE X4. INCISION INTACT. F/C PATENT WITH CLEAR YELLOW UOP. DENIES NEEDS/DISCOMFORT. HOB UP. C/L IN REACH. CONT CURRENT POC.
[2017-05-25 04:22] LABS: BASOPHILS 0 % (0-2); EOSINOPHILS 3.7 % (0-7); HEMATOCRIT 30.1 % (36.0-48.0); HEMOGLOBIN 10.1 g/dL (12-16); IMMATURE GRANULOCYTES 0.3 % (0-5); LYMPHOCYTES 16.8 % (15-50); MCH 30.1 pg (26.0-34.0); MCHC 33.6 g/dL (31.0-37.0); MCV 89.6 fL (80.0-100.0); MEAN PLATELET VOLUME 10.6 fL (7.4-10.4); MONOCYTES 11.8 % (2-11); NEUTROPHILS 67.4 % (40-80); PLATELET COUNT 179 10x3/uL (130-400); RBC 3.36 10x6/uL (4.00-5.40)
[2017-05-25 04:23] LABS: WBC 5.9 10x3/uL (4.8-10.8)
[2017-05-25 04:44] LABS: ANION GAP 12.8 mmol/L (8-16); CALCIUM 8.7 mg/dL (8.5-10.1); CREATININE - SERUM 0.9 mg/dL (0.6-1.3); POTASSIUM - SERUM 3.8 mmol/L (3.5-5.1)
--- NOTE | 2017-05-25 05:20 | NUR ---
PRN ULTRAM EFFECTIVE WITH PAIN CONTROL. RESTIING WELL WITH NO DISTRESS. VSS. HOB UP. C/L IN REACH. CONT CURRENT POC.
--- NOTE | 2017-05-25 13:25 | NUR ---
R CHEST TUBE PLACED BACK TO 20CM SXN.
--- NOTE | 2017-05-25 14:15 | NUR ---
ON BEDSIDE COMMODE. C/O NAUSEA. TO [facility] ROOM TO OBTAIN ZOFRAN WHEN HURRIEDLY CALLED BACK IN ROOM BY FAMILY. FOUND PATIENT UNRESPONSIVE ON COMMODE. MANUALLY LIFTED BACK TO BED AND PLACED ON R SIDE. AROUSED AND VOMITED LARGE AMT UNDIGESTED FOOD. VITALS OBTAINED. DENIES NEED FOR ZOFRAN. FAMILY REMAINS AT BEDSIDE.
--- NOTE | 2017-05-25 19:20 | NUR ---
PATIENT LAYING IN BED AWAKE AND ALERT. DR. FLOWERS IN ROOM. HE STATED HE WOULD LIKE TO KEEP THE TRANSFER ORDER BUT ALSO KEEP THE PATIENT IN ICU TONIGHT UNTIL CARDIOLOGY SEES HER IN THE MORNING. WILL CONTINUE TO MONITOR.
--- NOTE | 2017-05-25 19:20 | NUR ---
REPORT RECEIVED. SHIFT ASSESSMENT COMPLETED PER FLOW SHEET. PT LAYING IN BED AWAKE AND ALERT. PERRL. S1S2 PRESENT. RADIAL AND PEDAL PULSES PALP. TELEMETRY MONITORING HR 87. RESPIRATION EVEN, NONLABORED. BS HYPOACTIVE X4. PT REPORTS PASSING FLATUS. FONTENOT CATHETER TO GRAVITY, SECURED, DRAINING CLEAR YELLOW URINE. WEAKNESS TO UPPER AND LOWER EXTREMITIES. PT ABLE TO FOLLOW COMMANDS. PT REPORTS NUMNESS TO RT LEG AND REPORTS SHE HAS TALKED TO DR. FLOWERS ABOUT IT SHE STATES "WE HAVE TALKED A LOT ABOUT IT AND WE ARE HOPING I WILL REGAIN SENSATION SOON." SKIN WARM AND DRY. BRUISES NOTED TO ABDOMEN, ARMS, HANDS, AND PUBIS. LT FOREARM PIV, DRESSING CDI, SALINE LOCKED. SEE FLOW SHEET FOR COMPLETE ASSESMENT. CALL LIGHT WITHIN REACH. BED IN LOWEST POSITION. WILL CONTINUE TO MONITOR.
--- NOTE | 2017-05-25 20:32 | NUR ---
PT LAYING IN BED, REPORTS HIP PAIN. SCHEDULED TYLENOL AND MEDS GIVEN, SEE EMAR FOR DETAILS. PT REPOSITIONED FOR COMFORT. DENIES FURTHER NEEDS. WILL CONTINUE TO MONITOR.
--- NOTE | 2017-05-25 21:25 | NUR ---
PT LAYING IN BED, AWAKE, WATCHING TV. EXTRA PILLOW PROVIDED PER REQUEST. DENIES OTHER NEEDS. WILL CONTINUE TO MONITOR.
--- NOTE | 2017-05-25 23:30 | NUR ---
PT LAYING IN BED AWAKE. NO ACUTE CHANGES NOTED. NO DISTRESS AT THIS TIME. CUP OF ICE PROVIDED PER REQUEST, DENIES FURTHER NEEDS. CALL LIGHT WITHIN REACH. BED IN LOWEST POSITION. WILL CONTINUE TO MONITOR.
[2017-05-26] VITALS (11 sets, daily range): BP systolic 107–135; BP diastolic 51–97; Ht 170.2 cm; Wt 70.8 kg
--- NOTE | 2017-05-26 01:00 | NUR ---
PT LAYING IN BED RESTING. NO DISTRESS NOTED AT THIS TIME. DENIES NEEDS. WILL CONTINUE TO MONITOR.
--- NOTE | 2017-05-26 02:50 | NUR ---
PATIENT LAYING IN BED, AAO. CONVERSANT. SPEECH CLEAR. ASSISTED WITH REPOSITIONING. DENIES FURTHER NEEDS. WILL CONTINUE TO MONITOR.
--- NOTE | 2017-05-26 03:28 | NUR ---
PT PIPE WRAPPING MACHINE OPERATOR LIGHT. ASSISSTED WITH REPOSITIONING PER REQUEST. DENIES FURTHER NEEDS. NO DISTRESS NOTED AT THIS TIME. CONVERSANT, PLEASANT. CALL LIGHT WITHIN REACH. BED IN LOWEST POSITION. WILL CONTINUE TO MONITOR.
[2017-05-26 03:59] LABS: BASOPHILS 0.2 % (0-2); EOSINOPHILS 2.5 % (0-7); HEMATOCRIT 31.8 % (36.0-48.0); HEMOGLOBIN 10.4 g/dL (12-16); IMMATURE GRANULOCYTES 0.4 % (0-5); LYMPHOCYTES 20.1 % (15-50); MCH 29.5 pg (26.0-34.0); MCHC 32.7 g/dL (31.0-37.0); MCV 90.1 fL (80.0-100.0); MEAN PLATELET VOLUME 10.5 fL (7.4-10.4); MONOCYTES 12.3 % (2-11); NEUTROPHILS 64.5 % (40-80); PLATELET COUNT 189 10x3/uL (130-400); RBC 3.53 10x6/uL (4.00-5.40); RDW 13.9 % (11.5-14.5); WBC 5.5 10x3/uL (4.8-10.8)
[2017-05-26 04:22] LABS: ANION GAP 14.1 mmol/L (8-16); CALCIUM 8.8 mg/dL (8.5-10.1); CARBON DIOXIDE 26.6 mmol/L (21.0-32.0); MAGNESIUM - SERUM 1.8 mg/dL (1.8-2.4); PHOSPHOROUS 3.4 mg/dL (2.5-4.9); POTASSIUM - SERUM 3.7 mmol/L (3.5-5.1)
--- NOTE | 2017-05-26 05:00 | NUR ---
PT LAYING IN BED RESTING, EYES CLOSED. NO DISTRESS AT THIS TIME. WILL CONTINUE TO MONITOR.
--- NOTE | 2017-05-26 06:01 | NUR ---
PT LAYING IN BED RESTING. MEDS ADMINISTERED PER EMAR, SEE FOR DETAILS. DENIES NEEDS. WILL CONTINUE TO MONITOR.
--- NOTE | 2017-05-26 08:25 | NUR ---
SHIFT ASSESSMENT COMPLETE. PATIENT DENIES ANY NEEDS. CALL LIGHT WITHIN REACH, BED IN LOW POSITION.
--- NOTE | 2017-05-26 10:51 | NUR ---
UNABLE TO FLUSH IV OR GET BLOOD RETURN. NO REDNESS OR EDEMA NOTED AT SITE. WILL ATTEMPT TO RESTART IV.
--- NOTE | 2017-05-26 11:30 | NUR ---
ATTEMPTED TO RESTART IV X2 AND UNSUCCESSFUL. PATIENT DOES NOT WANT IV AT THIS TIME. WILL ASK ABOUT CHANGING PROTONIX TO PO INSTEAD OF IV.
--- NOTE | 2017-05-26 12:40 | NUR ---
REPORT CALLED TO MED SURG, ROOM 2218 WAS GIVEN. CALL LIGHT WITHIN REACH, AND BED IN LOW POSITION.
--- NOTE | 2017-05-26 13:43 | NUR ---
pt recieved from icu per bed. no complaints at present. dove noted with yellow urine drainage. no iv noted. hob up x 45 degrees or more per patient request. vs 137/65 89 18 98% ra 97.6 temp. call light in reach. instructed not to get up without assistance.
--- NOTE | 2017-05-26 20:00 | NUR ---
ASSESSMENT PER FLOWSHEET. MEDS GIVEN PER SEP. INCISION ABDOMEN C/D/I WITH BRUISING NOTED. FONTENOT TO BEDSIDE DRAINAGE WITH YELLOW URINE.
--- NOTE | 2017-05-26 22:00 | NUR ---
EYES CLOSED RESPIRATIONS WITH EASE AND UNLABORED.
[2017-05-27] VITALS: BP 121/59
--- NOTE | 2017-05-27 03:45 | NUR ---
EYES CLOSED RESPIRATIONS WITH EASE AND UNLABORED.
[2017-05-27 05:39] LABS: BASOPHILS 0.1 % (0-2); EOSINOPHILS 2.5 % (0-7); HEMATOCRIT 31.7 % (36.0-48.0); HEMOGLOBIN 10.5 g/dL (12-16); IMMATURE GRANULOCYTES 0.8 % (0-5); LYMPHOCYTES 17.7 % (15-50); MCH 29.8 pg (26.0-34.0); MCHC 33.1 g/dL (31.0-37.0); MCV 90.1 fL (80.0-100.0); MEAN PLATELET VOLUME 10.3 fL (7.4-10.4); MONOCYTES 13.5 % (2-11); NEUTROPHILS 65.4 % (40-80); PLATELET COUNT 226 10x3/uL (130-400); RBC 3.52 10x6/uL (4.00-5.40)
[2017-05-27 05:42] LABS: WBC 7.6 10x3/uL (4.8-10.8)
[2017-05-27 05:50] LABS: ANION GAP 13.7 mmol/L (8-16); CALCIUM 8.9 mg/dL (8.5-10.1); CARBON DIOXIDE 24.9 mmol/L (21.0-32.0); CREATININE - SERUM 0.9 mg/dL (0.6-1.3); POTASSIUM - SERUM 3.6 mmol/L (3.5-5.1)
--- NOTE | 2017-05-27 06:31 | NUR ---
MEDS GIVEN PER SEP. ALERT/ORIENTED X3
--- NOTE | 2017-05-27 07:10 | NUR ---
REPORT RECEIVED FROM NURSE INTERN NURSE. CALL LIGHT IN REACH.
--- NOTE | 2017-05-27 08:22 | NUR ---
ASSESSMENT COMPLETED. ASSISTED TO BR SO SHE CAN ATTEMPT TO HAVE A BM. FALL PRECAUTIONS INITIATED. CALL LIGHT IN REACH. WILL CONTINUE WITH PLAN OF CARE.
[2017-05-27 09:05] VITALS: BP 116/58
--- NOTE | 2017-05-27 09:47 | NUR ---
AM MEDS ADMINISTERED. HELD BP MED AND LASIX D/T BP OF 116/58. SCDs APPLIED TO BLE. FAMILY MEMBER IN ROOM. CALL LIGHT IN REACH.
[2017-05-27] MEDS ORDERED: LASIX40 MG PO (10:43)
[2017-05-27] MEDS ORDERED: ACETAMINOPHEN500 M1 PO (10:43)
[2017-05-27] MEDS ORDERED: ATROVENT 0.02%2.5 ML UPD (10:43)
[2017-05-27] MEDS ORDERED: COREG 3.1253.125 MG PO (10:43)
[2017-05-27] MEDS ORDERED: VALIUM5 MG PO (10:43)
[2017-05-27] MEDS ORDERED: Levaquin PO (10:43)
[2017-05-27] MEDS ORDERED: PULMICORT0.5 MG/21 UPD (10:44)
[2017-05-27] MEDS ORDERED: K-DUR20 MEQ PO (10:44)
[2017-05-27] MEDS ORDERED: FLORAJEN3 CAPS460 MG PO (10:46)
[2017-05-27] MEDS ORDERED: SALINE NASAL SP45 ML NASAL (10:46)
[2017-05-27] MEDS ORDERED: PROTONIX40 MG PO (10:48)
[2017-05-27] MEDS ORDERED: SENOKOT-S TABLE1 TAB PO (10:49)
[2017-05-27] MEDS ORDERED: ULTRAM50 MG PO (10:52)
--- NOTE | 2017-05-27 11:14 | NUR ---
STATES PAIN IS STILL AN 8. DR ADAMS AND DR. TORRES IN ROOM TO SEE THE PATIENT.
[2017-05-27 11:35] VITALS: BP 118/62
--- NOTE | 2017-05-27 11:41 | NUR ---
KAILEE PO. STATES PAIN IS A 5 AT THIS TIME. FAMILY IN ROOM. CALL LIGHT IN REACH.
--- NOTE | 2017-05-27 12:32 | NUR ---
FONTENOT CATH DC'D WITH TIP INTACT.
--- NOTE | 2017-05-27 14:25 | NUR ---
TYLENOL PO PER ORDER. CALL LIGHT IN REACH.
--- NOTE | 2017-05-27 15:10 | NUR ---
PATIENT DISCHARGING TO INPATIENT REHAB TODAY
[2017-05-27 16:12] VITALS: BP 144/76
--- NOTE | 2017-05-27 16:56 | NUR ---
COREG PO. HAS VOIDED.
--- NOTE | 2017-05-27 18:11 | NUR ---
REPORT CALLED TO KELLI KAN, IN REHAB.
--- NOTE | 2017-05-27 18:37 | NUR ---
DC'D TO REHAB VIA , ROOM [id number].
--- NOTE | 2017-05-30 10:04 | OP ---
PATIENT NAME: WON ODWELL MEDICAL RECORD: [id number] :39 LOCATION:[facility] ADMISSION DATE:05/20/17 SURGEON: LLOYD LAMBERT MD DATE OF OPERATION: 05/20/2017 PREOPERATIVE DIAGNOSIS: Degenerative disk disease with lumbar and foraminal stenoses, L5-S1. POSTOPERATIVE DIAGNOSIS: Degenerative disk disease with lumbar and foraminal stenoses, L5-S1. PROCEDURE: Anterior opening for anterior lumbar interbody fusion. This was a cosurgeon case. The general surgeon was Dr. Lloyd Lambert. The neurosurgical was Dr. Zackary Flowers. SURGEON: Lloyd Lambert MD ANESTHESIA: General. BLOOD LOSS: 300 cc. COMPLICATIONS: None. Dr. Flowers assisted me with the opening and exposure. I assisted Dr. Flowers with the placement of the interbody fusion device. I will dictate my portion of the operative procedure. This was a cosurgeon case. It was necessary of a 2 attending surgeons to be present due to the complexity of this type of operative procedure. DESCRIPTION OF PROCEDURE: The patient was conveyed to the operating room electively on 05/20/2017. General anesthesia was induced by the anesthesia staff. With the C-arm in the lateral position, we used a metallic yesy to line up the L5-S1 disk space with the skin. The skin was then marked. The abdomen was sterilely prepped and draped. A transverse incision was accomplished where the deion was. This was approximately a 3-4 inch incision. Sharp dissection was carried down through skin and subcutaneous tissue. The rectus sheath was incised in the midline. Utilizing an extraperitoneal approach, I began to dissect under the rectus muscle to the left. I dissected down into the pelvis and entered the prevesicular space. I dissected up superiorly and I identified the transversalis fascia, which was then divided. I continued to have move the visceral sac to the patient's right. The right ureter was identified and was retracted as well. A MARS retractor was placed. The blades of MARS retractor placed elevating the inferior vena caval bifurcation and then 2 blades were placed laterally and 1 blade was placed distally. This opened up the disk space at L5-S1. I stayed through the entire operation. I was there to ensure that there was not a vascular injury during the procedure. I retracted the peritoneum laterally as well as superiorly so that Dr. Flowers could perform the diskectomy. He then performed placement of the interbody OPERATIVE REPORT [id number] [id number] LOPEZNE device and I assisted with retraction while he fixated the interbody device into the L5 and S1 endplates. We then took MARS retractor out. I identified the left ureter and it was intact. There has been no ureteral injury. I identified the vascular structures and they were without injury as well. I felt the common femoral artery pulses in both groins. The midline rectus fascia was approximated with looped #1 PDS. The subcutaneous tissues were approximated with interrupted 3-0 Vicryls. The skin was approximated with a running intracuticular 3-0 Vicryl. A sterile dressing was applied. The patient was then extubated and conveyed to post-anesthesia care unit where she was in stable condition. TRANSINT:[id number] Voice Confirmation ID: [id number] DOCUMENT ID: [id number] LLOYD LAMBERT MD at 1004 CC: DEE TORRES DO and ZACKARY FLOWERS MD [id number] DICTATION DATE: 05/29/17 172 REVIEW SCHEDULING COORDINATOR: 05/29/17 1904 DIS IN 05/27/17 [facility] [address] [place] [address]
--- NOTE | 2017-07-08 13:27 | OP ---
PATIENT NAME: WON DOWELL MEDICAL RECORD: [id number] :38 LOCATION:[facility] ADMISSION DATE:05/20/17 SURGEON: ZACKARY FLOWERS MD DATE OF OPERATION: PREOPERATIVE DIAGNOSES: Severe degenerative disc disease with segmental instability at L5-S1 and bilateral severe L5-S1 foraminal stenosis. POSTOPERATIVE DIAGNOSES: Severe degenerative disc disease with segmental instability at L5-S1 and bilateral severe L5-S1 foraminal stenosis. PROCEDURE: Anterior lumbar interbody fusion with [employer] PEEK interbody spacer and [employer] anterior cervical plate and screws. SURGEON: Zackary Flowers MD COSURGEON: Sourav Orlando MD ANESTHESIA: General. COMPLICATIONS: None. DESCRIPTION OF TECHNIQUE: After exposure of the L5-S1 interspace by Dr. Orlando, he assisted me in incising the L5-S1 disc space. Disc space was cleared of disc material. The bony endplates were prepared by removing the cartilaginous endplate with a Jurado sharp dissector. Following this, an appropriate size PEEK interbody cage was placed in the disc space after appropriate trials. A titanium plate was placed across the disc space and titanium screws were placed through the plate under fluoroscopic control. Prior to this, the end plates were prepared by roughing them up with a curette until bleeding bone was identified and a bone stem cell allograft was placed in the PEEK interbody cage. After confirmation of the placement of the cage with fluoroscopic x-ray to be in good position, the locking heads of the screws were engaged and meticulous hemostasis was maintained throughout the wound. Dr. Orlando closed the surgical incision. TRANSINT:[id number] Voice Confirmation ID: [id number] DOCUMENT ID: [id number] ZACKARY FLOWERS MD at 1327 CC: [id number] DICTATION DATE: 07/01/17 1729 CORPORATE LOGISTICS MANAGER: 07/01/17 194 DIS IN 05/27/17 [place] [id number] [place] [address]
--- NOTE | 2017-09-05 15:44 | DS ---
PATIENT:WON DOWELL :38 MEDICAL RECORD: [id number] DISCHARGE SUMMARY ADMISSION DATE: 05/20/17 DISCHARGE DATE: 05/27/17 ADMISSION DIAGNOSES: Severe degenerative disc disease at L5-S1 with segmental instability. DISCHARGE DIAGNOSES: Severe degenerative disc disease at L5-S1 with segmental instability. PROCEDURE: Anterior lumbar interbody fusion at L5-S1. HOSPITAL COURSE: The patient was admitted as an outpatient for an anterior lumbar interbody fusion procedure. Postoperatively, she had a stormy course with hypotension, tachycardia and delirium requiring ICU stay. Ultimately, she was sent to rehab for recuperation and was to follow up with Dr. Vivas in 2 weeks' time after discharge from rehab with AP and lateral lumbar films. DIET: Regular upon discharge. DISCHARGE MEDICATIONS: Please see the MAR from rehab unit. TRANSINT:[id number] Voice Confirmation ID: [id number] DOCUMENT ID: [id number] ZACKARY VIVAS MD at 1544 CC: [id number] DICTATION DATE: 09/03/17 1158 HARNESS PULLER: 09/04/17 0045 DIS IN 05/27/17 [facility] [address] [place] [address]
== END 2017-05-27 18:37 | DRG 459 ==
LOC: D.CVICU 05:35 → D.SDCHOLD 05:35 → D.MS 05:35 → D.SDCHOLD 07:30 → D.CVICU 13:28 → D.MS 05-26 13:32
PROVIDERS: Anesthesiology; Family Medicine; Internal Medicine Pulmonary Disease; Surgery; ADMIT Neurological Surgery
PROC: 0SB40ZZ Excision of Lumbosacral Disc, Open Approach (ICD-10-PCS; 2017-05-20)
PROC: 0SG30A0 Fusion of Lumbosacral Joint with Interbody Fusion Device, Anterior Approach, Anterior Column, Open Approach (ICD-10-PCS; principal; 2017-05-20 07:30)
DX: M48.061 Spinal stenosis, lumbar region without neurogenic claudication (principal); J96.01 Acute respiratory failure with hypoxia; I50.21 Acute systolic (congestive) heart failure; K56.0 Paralytic ileus; D62 Acute posthemorrhagic anemia; F05 Delirium due to known physiological condition; I48.92 Unspecified atrial flutter; I08.1 Rheumatic disorders of both mitral and tricuspid valves; I95.9 Hypotension, unspecified; E87.6 Hypokalemia; M26.601 Right temporomandibular joint disorder, unspecified

== ENCOUNTER 2017-05-27 18:30 | Inpatient (IN) | payer MEDICARE, OTHER ==
[~2017-05-27 18:30] MED LIST changes: +ACETAMINOPHEN500 M1 PO; +ATROVENT 0.02%2.5 ML UPD; +COREG 3.1253.125 MG PO; +FLORAJEN3 CAPS460 MG PO; +K-DUR20 MEQ PO; +LASIX40 MG PO; +Levaquin PO; +MAG 6464 MG PO; +PROTONIX40 MG PO; +PULMICORT0.5 MG/21 UPD; +SALINE NASAL SP45 ML NASAL; +SENOKOT-S TABLE1 TAB PO; +SUPER B COMPLE150 MG PO; +ULTRAM50 MG PO; +VALIUM5 MG PO
--- NOTE | 2017-05-27 18:45 | NUR ---
ACCORDING TO DAY SHIFT NURSE REPORTED, PT ARRIVED TO REHAB UNIT AT 1845, ACCOMPY BY NURSE STAFF VIA WHEELCHAIR. PT ALERT AND ORIENTED.
--- NOTE | 2017-05-27 18:45 | NUR ---
PT. ARRIVED VIA W/C WITH ASSISTANCE OF HOSPITAL STAFF.
--- NOTE | 2017-05-27 19:20 | NUR ---
PT. BEING ASSISTED INTO BATHROOM TO URINATE. NO OTHER VOICED NEEDS AT THIS TIME.
[2017-05-27 22:14] VITALS: BP 118/68; BMI 23.5
--- NOTE | 2017-05-28 04:07 | NUR ---
REST QUIETLY IN BED, EYE CLOSE, CALL LIGHT IN REACH.
[2017-05-28 06:13] LABS: BASOPHILS 0.2 % (0-2); HEMATOCRIT 35.2 % (36.0-48.0); HEMOGLOBIN 11.6 g/dL (12-16); IMMATURE GRANULOCYTES 0.9 % (0-5); LYMPHOCYTES 21.7 % (15-50); MCH 29.8 pg (26.0-34.0); MCV 90.5 fL (80.0-100.0); MEAN PLATELET VOLUME 10.5 fL (7.4-10.4); NEUTROPHILS 62.2 % (40-80); PLATELET COUNT 265 10x3/uL (130-400); RBC 3.89 10x6/uL (4.00-5.40); RDW 14.3 % (11.5-14.5); WBC 8.5 10x3/uL (4.8-10.8)
[2017-05-28 06:38] LABS: ANION GAP 14.4 mmol/L (8-16); CALCIUM 9.4 mg/dL (8.5-10.1); CARBON DIOXIDE 24.4 mmol/L (21.0-32.0); CREATININE - SERUM 0.9 mg/dL (0.6-1.3); POTASSIUM - SERUM 3.8 mmol/L (3.5-5.1)
--- NOTE | 2017-05-28 07:48 | NUR ---
RESTING QUIETLY.CL IN REACH.
[2017-05-28 08:17] VITALS: BP 123/67
--- NOTE | 2017-05-28 09:00 | NUR ---
PATIENT IS ALERT/ORIENT X4. USING CALL LIGHT FOR NEEDS. VOICES NO NEEDS AT THIS TIME.
--- NOTE | 2017-05-28 12:52 | NUR ---
PRN ULTRUM GIVEN PER PATIENT REQUEST FOR BACK AND HIP PAIN.
[2017-05-28 13:46] VITALS: BMI 23.5
--- NOTE | 2017-05-28 14:51 | NUR ---
PATIENT IN SHOWER WITH HELP FROM NURSE ASST. SET UP AND MIN ASST WITH SHOWER.
--- NOTE | 2017-05-28 16:33 | NUR ---
PRN MIRALAX GIVEN PER PATIENT REQUEST
--- NOTE | 2017-05-28 19:20 | NUR ---
IN BED, AWAKE. REQUESTED SHE COMPLETE HER MENU FOR TOMORROW.
[2017-05-28 20:20] VITALS: BP 112/62
--- NOTE | 2017-05-28 20:20 | NUR ---
ASSESSMENT AND HS MEDS COMPLETE. C/O PAIN LEVEL OF 5/10 IN LOW BACK. REQUESTED AND WAS GIVEN TYLENOL ES 500MG PO. OFFERED ULTRAM BUT PATIENT DECLINED IT.
--- NOTE | 2017-05-28 22:10 | NUR ---
RESTING QUIETLY IN BED, EYES CLOSED.
--- NOTE | 2017-05-29 00:05 | NUR ---
IN BED, EYES CLOSED. RESTING QUIETLY.
--- NOTE | 2017-05-29 02:20 | NUR ---
RESTING IN BED, EYES CLOSED.
--- NOTE | 2017-05-29 05:25 | NUR ---
GAVE PATIENT SCHEDULED PO MEDS. PATIENT DENIES NEEDS.
--- NOTE | 2017-05-29 07:34 | NUR ---
ASSISTED WITH TRANSFER FROM BED TO W/C STAND BY ASSIST. ALERT AND ORIENTED X4. DENIES ANY PAIN OR NEEDS. NO S/SX OF ACUTE DISTRESS. CALL LIGHT AND PERSONAL ITEMS WITHIN REACH, W/C BRAKES LOCKED. WILL CONTINUE TO MONITOR
[2017-05-29 07:51] VITALS: BP 115/65
--- NOTE | 2017-05-29 07:54 | NUR ---
RESTING QUIETLY IN BED. CALL LIGHT IN REACH. BED IN LOWEST POSITION.
--- NOTE | 2017-05-29 09:57 | NUR ---
SITTING UP IN BED WATCHING TV. DENIES ANY NEEDS OR PAIN. NO S/SX OF ACUTE DISTRESS. CALL LIGHT AND PERSONAL ITEMS WITHIN REACH, BED LOW, ALARM ON. WILL CONTINUE TO MONITOR
--- NOTE | 2017-05-29 12:54 | NUR ---
CALLED DR. GOLDSTEIN IN REGARDS TO PT BEING DIZZY. DR. GOLDSTEIN ORDERED MECLIZINE 25MG Q6HP.
--- NOTE | 2017-05-29 13:16 | NUR ---
SITTING UP IN BED VISITING WITH DAUGHTER. ADMINISTERED MECLIZINE 25MG FOR DIZZINESS PER PT REQUEST. DENIES ANY OTHER NEEDS. WILL CONTINUE TO MONITOR
--- NOTE | 2017-05-29 17:23 | NUR ---
SITTING UP IN W/C VISITING WITH DAUGHTER. DENIES ANY NEEDS OR PAIN. NO S/SX OF RESPIRATORY DISTRESS. CALL LIGHT AND PERSONAL ITEMS WITHIN REACH, W/C BRAKES LOCKED, ALARM ON. WILL CONTINUE TO MONITOR
--- NOTE | 2017-05-29 19:00 | NUR ---
IN BED, AWAKE. DENIES NEEDS.
[2017-05-29 20:15] VITALS: BP 131/74
--- NOTE | 2017-05-29 20:15 | NUR ---
VS AND ASSESSMENT COMPLETE.
--- NOTE | 2017-05-29 21:35 | NUR ---
HS MEDS COMPLETE. C/O PAIN LEVEL OF 5/10 IN LOW BACK. GAVE HER ULTRAM 100MG PO.
--- NOTE | 2017-05-29 22:10 | NUR ---
RESTING IN BED, EYES CLOSED.
--- NOTE | 2017-05-30 00:15 | NUR ---
IN BED, AWAKE. RECEIVING R/T UPDRAFT. DENIES NEEDS.
--- NOTE | 2017-05-30 02:15 | NUR ---
RESTING IN BED ON RIGHT SIDE. APPEARS A BIT RESTLESS AT PRESENT. DOES NOT APPEAR TO BE AWAKE, HOWEVER.
--- NOTE | 2017-05-30 04:40 | NUR ---
PATIENT AWAKENED BY PHLEBOTAMIST. DENIES CURRENT NEEDS.
--- NOTE | 2017-05-30 05:40 | NUR ---
RESTING QUIETLY IN BED, EYES CLOSED.
[2017-05-30 06:00] LABS: BASOPHILS 0.3 % (0-2); EOSINOPHILS 2.2 % (0-7); IMMATURE GRANULOCYTES 1.2 % (0-5); LYMPHOCYTES 24.7 % (15-50); MCH 29.7 pg (26.0-34.0); MCHC 33.3 g/dL (31.0-37.0); MCV 89.2 fL (80.0-100.0); MEAN PLATELET VOLUME 10.3 fL (7.4-10.4); MONOCYTES 12.4 % (2-11); NEUTROPHILS 59.2 % (40-80); PLATELET COUNT 274 10x3/uL (130-400); RDW 14.2 % (11.5-14.5); WBC 6.8 10x3/uL (4.8-10.8)
[2017-05-30 06:11] LABS: CALCIUM 9.3 mg/dL (8.5-10.1); CARBON DIOXIDE 24.3 mmol/L (21.0-32.0); POTASSIUM - SERUM 4.3 mmol/L (3.5-5.1)
--- NOTE | 2017-05-30 08:15 | NUR ---
ASSESSMENT NOTED. ASSIST PT TO RESTROOM WITH MIN ASSIST. DENIES PAIN,DISCOMFORT AT PRESENT. ASSIST BACK TO BED WITH HOB UP 90 DEGREES FOR BREAKFAST, PT ABLE TO FEED SELF. CL AT SIDE
[2017-05-30 08:52] VITALS: BP 118/72
--- NOTE | 2017-05-30 12:00 | NUR ---
SITTING UP IN BED EATING LUNCH.
--- NOTE | 2017-05-30 12:48 | NUR ---
PATIENT ADMITTED TO REHAB FROM ACUTE FLOOR. DR. TORRES IS PATIENT PCP AND HER PHARMACY IS [facility]. SHE HAS NO DME AT HOME NOR HAS SHE HAD HOME HEALTH. WILL FOLLOW WITH PATIENT AND WILL ASSIT WITH DISCHARGE NEEDS.
--- NOTE | 2017-05-30 13:45 | NUR ---
Nutrition Follow Up: Pt is eating 50% meal avg on a regular diet. No BM since admit. Meds noted including ELLEN Meléndez. Labs reviewed - Na low. Rec continue current diet. Will continue to honor food preferences. RD following.
--- NOTE | 2017-05-30 19:00 | NUR ---
IN BED, AWAKE. DENIES NEEDS. GAVE HER TOMORROW'S MENU AND ASKEND HER TO COMPLETE IT.
[2017-05-30 21:16] VITALS: BP 130/76
--- NOTE | 2017-05-30 21:35 | NUR ---
IN BED, AWAKE. DENIES NEEDS.
--- NOTE | 2017-05-30 22:25 | NUR ---
ASSESSMENT AND HS MEDS COMPLETE. NO COMPLAINTS AT THIS TIME.
--- NOTE | 2017-05-31 00:35 | NUR ---
REMAINS IN BED, EYES CLOSED. NO DISTRESS EVIDENT.
--- NOTE | 2017-05-31 02:35 | NUR ---
IN BED, RESTING ON RIGHT SIDE. APPEARS COMFORTABLE.
--- NOTE | 2017-05-31 04:30 | NUR ---
IN BED EYES CLOSED. RESPIRING QUIETLY.
--- NOTE | 2017-05-31 06:50 | NUR ---
MEDS GIVEN TO PATIENT. SHE WAS THEN ASSISTED UP TO [facility].
--- NOTE | 2017-05-31 08:00 | NUR ---
SHIFT ASSMT COMPLETED.CL IN REACH.
[2017-05-31 09:20] VITALS: BP 106/33
--- NOTE | 2017-05-31 12:00 | NUR ---
EATING LUNCH.CL IN REACH.
--- NOTE | 2017-05-31 16:00 | NUR ---
RESTING QUIETLY.CL IN REACH.
--- NOTE | 2017-05-31 19:30 | NUR ---
PT. IN BED WITH HOB UP FOR COMFORT AND WAS RESTING. ASSESSMENT COMPLETED. NO VOICED NEEDS AT THIS TIME AND HER CALL LIGHT IS WITHIN REACH.
[2017-05-31 20:35] VITALS: BP 111/60
--- NOTE | 2017-05-31 23:25 | NUR ---
PT. IN BED LYING ON HER LEFT SIDE. EYES CLOSED AND RESP. EVEN. CALL LIGHT WITHIN REACH.
--- NOTE | 2017-06-01 03:12 | NUR ---
PT. IN BED WITH HOB UP AND LYING ON HER RIGHT SIDE. EYES CLOSED AND RESP. EVEN WITH CALL LIGHT WITHIN REACH.
[2017-06-01 10:32] VITALS: BP 111/58
--- NOTE | 2017-06-01 19:20 | NUR ---
PT. IN BED WITH HOB UP FOR COMFORT AND GREATED ME UPON ENTRANCE INTO ROOM. ASSESSMENT COMPLETED. NO VOICED NEEDS AT THIS TIME AND SHE HAS HER CALL LIGHT WITHIN REACH.
[2017-06-01 19:30] VITALS: BP 123/49
--- NOTE | 2017-06-01 23:18 | NUR ---
PT. IN BED WITH HOB UP FOR COMFORT AND IS LYING ON HER LEFT SIDE. EYES CLOSED AND RESP. EVEN AND HER CALL LIGHT IS WITHIN REACH.
--- NOTE | 2017-06-02 03:05 | NUR ---
PT. IN BED WITH HOB UP FOR COMFORT WITH EYES CLOSED AND RESP. EVEN. PT. LYING ON HER RIGHT SIDE AND HAS HER CALL LIGHT WITHIN REACH.
--- NOTE | 2017-06-02 03:15 | NUR ---
PT. IN BED WITH HOB UP FOR COMFORT AND IS LYING ON HER RIGHT SIDE. EYES CLOSED AND RESP. EVEN WITH CALL LIGHT WITHIN REACH.
[2017-06-02 07:53] VITALS: BP 118/52
--- NOTE | 2017-06-02 08:00 | NUR ---
PATIENT IS ALERT/OREINT X4. HAS PEANUT BUTTER AND BREAD FOR BREAKFAST. STATES THAT WHAT SHE EATS EVERY MORNING AT HOME. REFUSED BREAKFAST TRAY, EXCEPT FOR JUICE. CALL LIGHT WITHIN REACH. USING CALL LIGHT FOR NEEDS
--- NOTE | 2017-06-02 10:22 | NUR ---
PATIENT HELPED TO BATHROOM. STAND BY ASST WITH WHEELED WALKER. USING CALL LIGHT FOR NEEDS
--- NOTE | 2017-06-02 12:40 | NUR ---
PATIENT SITTING UP AT BEDSIDE TO EAT LUNCH. APPETITE POOR.
--- NOTE | 2017-06-02 17:13 | NUR ---
PATIENT LYING IN BED RESTING BEFORE SUPPER. VISITORS IN ROOM. VOICES NO NEEDS AT THIS TIME
--- NOTE | 2017-06-02 18:40 | NUR ---
RESTING QUIETLY IN BED. CALL LIGHT IN REACH. BED IN LOWEST POSITION.
--- NOTE | 2017-06-02 19:20 | NUR ---
PT. SITTING UP IN W/C AND HAS NO VOICED NEEDS AT THIS TIME. ASSESSMENT COMPLETED. ASSISTED PT. TO BR AND PT. TO CALL FOR ASSISTANCE WHEN FINISHED. EMERGENCY CALL PULL CORD WITHIN PT'S REACH.
[2017-06-02 19:45] VITALS: BP 129/63
--- NOTE | 2017-06-02 23:05 | NUR ---
PT. IN BED LYING ON HER RIGHT SIDE WITH HOB UP FOR COMFORT. EYES CLOSED AND RESP. EVEN. CALL LIGHT REMAINS WITHIN REACH.
--- NOTE | 2017-06-02 23:05 | NUR ---
PT. IN BED LYING ON HER RIGHT SIDE. EYES CLOSED AND RESP. DEEP AND EVEN. CALL LIGHT WITHIN REACH.
[2017-06-03 09:00] VITALS: BP 120/66
--- NOTE | 2017-06-03 09:15 | NUR ---
PT AM MEDS ADMINISTERED. PT REQ AND REC'D PRN PAIN MEDICATION FOR 6/10 BACK PAIN AT THIS TIME. WCTM.
--- NOTE | 2017-06-03 10:55 | NUR ---
Nutrition Follow Up: Pt stated that she was very nauseated. She said that her appetite has improved but continues poor. Informed nursing of pt nausea. Pt is eating 39% meal avg on a regular diet. +BM 06/02/17. Labs reviewed. Meds noted including Lasadriana MV. Rec continue current diet. Rec consider an appetite stimulant. RD following.
--- NOTE | 2017-06-03 12:15 | NUR ---
PT EATING LUNCH, DENIES NEEDS. WCTM.
--- NOTE | 2017-06-03 17:09 | RHP ---
PATIENT: WON DOWELL MEDICAL RECORD: [id number] ACCOUNT: [id number] LOCATION:[facility] : 39 ADMISSION DATE: 05/27/17 REHABILITATION HISTORY AND PHYSICAL EXAMINATION POST ADMISSION PHYSICIAN EXAMINATION POST-ADMISSION PHYSICAL EXAMINATION AND HISTORY AND PHYSICAL DATE OF ADMISSION: 05/27/2017 ADMITTING DIAGNOSES: Lumbar spinal canal stenosis and lumbar radiculopathy. HISTORY OF PRESENT ILLNESS: The patient is a 76-year-old female patient admitted to inpatient rehab with lumbar spinal canal stenosis and lumbar radiculopathy status post anterior lumbar fusion at L5-S1. She has a long history of lumbar stenosis and difficulty ambulating secondary to pain. Prior to surgery, she had a series of lumbar epidural spinal injections on 01/09, 02/03 and 02/20 with minimal to no relief. Past medical history includes hypertension, osteoarthritis, lumbar stenosis, hypothyroidism, chronic pain, hyperlipidemia, dependent edema and osteopenia. Postop, she has some delirium with confusion, was transferred to ICU. She also had some blood loss anemia with CT of the abdomen showing a fluid collection in retroperitoneum, suggestive of hematoma. The patient was treated with IV fluid resuscitation and packed red blood cells times 3, as well as platelets and fresh frozen plasma. The patient's H&H was 5.9 and 18.8 prior to transfusion. Pulmonary was consulted for acute hypoxic respiratory failure, volume overload or pulmonary edema. Cardiology was consulted for tachycardia and acute systolic congestive heart failure. The patient had no previous known history of cardiology or pulmonary problems. Echo showed left ventricular chamber size that was mildly dilated. Her overall ejection fraction was 15% to 20%. Left atrium was enlarged at 4.1 cm. Right atrium and right ventricle chambers were also dilated. Psych consult feels that her delirium was multifactorial including surgery, anemia, and hypoxia. Prior to her surgery, she was living alone and independent with ADLs and mobility without aid. Currently, she is mod to max assist for ADLs and mobility. She has 2 small palpable hematomas to left lower quadrant. Her mental status is back to baseline. Cardiac shows a sinus tachycardia. Her O2 on 2 liters is 96% and she ambulated 20 feet with 40% assist. She plans to return back home after discharge. Comorbidities in this patient include hypothyroidism, hypertension, post-procedure respiratory failure status post anterior lumbar fusion, acute blood loss anemia, pulmonary edema, hematoma, acute confusion, postop delirium, hypotension, hypoxia, hypokalemia, postop ileus, dehydration, orthopnea, diarrhea, anemia, syncope, fatigue, weakness and anxiety. PAST MEDICAL HISTORY: Significant for hypertension, osteoarthritis, gastroesophageal reflux disease, lumbar stenosis, hypothyroidism, chronic pain, neuropathy, dependent edema and osteopenia. PAST SURGICAL HISTORY: Includes trauma to her right index finger, appendectomy, cholecystectomy and a low back fusion approximately 10 years ago. ALLERGIES: No known drug allergies. MEDICATIONS: Current medications include MiraLax 17 grams in 8 ounces of water daily, Stress multivitamin daily, Senokot 1 tab b.i.d., potassium chloride 20 HISTORY AND PHYSICAL [id number] DELMER,HIXIE RODRIGO mEq daily, Protonix 40 mg daily, Mag-Ox 400 mg daily, Synthroid 88 mcg daily, Levaquin 500 mg daily, Floranex 460 mg daily, furosemide 40 mg daily, carvedilol 3.125 mg b.i.d. with meals, Pulmicort 0.5 mg b.i.d., tramadol 100 mg q.6 hours, Atrovent and ipratropium bromide updrafts as needed, Valium 5 mg q.8 hours p.r.n. and she was on Tylenol 1000 mg q.6 hours, I have discontinued this. HABITS: No alcohol or tobacco use. FAMILY HISTORY: Noncontributory. SOCIAL HISTORY: The patient hopes to return back home and get back to her prior level of functioning. REVIEW OF SYSTEMS: GENERAL: Does complain of weakness. HEENT: Denies cold, cough, or congestion. CARDIOVASCULAR: Denies chest pain. PHYSICAL EXAMINATION: VITAL SIGNS: Stable, afebrile. GENERAL: Elderly female in no acute distress, alert upon exam. HEENT: Normocephalic and atraumatic. Mucosa moist. NECK: Does have a little bit of tenderness, but nothing out of ordinary. LUNGS: Clear in upper cox. HEART: Regular rate and rhythm. ABDOMEN: Benign. EXTREMITIES: No clubbing, cyanosis or edema. NEUROLOGIC: She is intact. SKIN: Her skin incision actually looks good. No signs of any type of infection at this time. LABORATORY DATA: White count is 8.5, H&H of 12 and 35, and platelet count was noted to be 265. Sodium 133, potassium 3.8, BUN and creatinine of 13 and 0.9, blood sugar is noted to be 108. ASSESSMENT: This is a 76-year-old female patient admitted to rehab with a working diagnosis of status post lumbar spinal stenosis and lumbar radiculopathy status post anterior lumbar fusion at L5-S1 The patient has potential to make improvement. We instituted the following multidisciplinary therapies including to, but not limited to physical, occupational, respiratory, speech, nutritional services, prosthetics and orthotics. Given her complex condition and risk for more complications, rehabilitation services cannot be provided at a low level of care such as a detention facility. PLAN: 1. Admit to [facility] rehab for intensive inpatient therapy to include the following disciplines: A. Physical therapy to improve gait, all transfer skills and bed mobility to a modified independent level. B. Occupational therapy to improve activities of daily living to a modified independent level. C. Case management to assist with discharge planning and placement options. D. Nutrition to assist with nutritional needs. E. Rehabilitation nursing to assist in monitoring the patient's underlying medical conditions and to assist with any type of bowel or bladder management. HISTORY AND PHYSICAL [id number] WON DOWELL 2. The patient's current medications and medical care will be continued. 3. The patient will be placed on standard fall precautions. 4. The patient's estimated length of stay is approximately 7-10 days. 5. Watch her blood counts closely and will transfuse if necessary and will discuss this patient during care team meeting today. TRANSINT:[id number] Voice Confirmation ID: [id number] DOCUMENT ID: [id number] BRAD notes whether there has been none or any medical/functional change since admission: - BRAD attests patient continues to be appropriate for IRF: - ARNULFO GOLDSTEIN MD at 1709 CC: [id number] DICTATION DATE: 05/28/17 0755 MANAGER OF HOUSEKEEPING: 05/28/17 0911 ADM IN [place] [id number] [place] [id number]
--- NOTE | 2017-06-03 17:52 | NUR ---
PT REQ AND REC'D PRN PAIN MEDICATION FOR 6/10 BACK PAIN. WCTM.
--- NOTE | 2017-06-03 18:35 | NUR ---
PT EATING LUNCH, DENIES NEEDS. WCTM.
[2017-06-03 19:00] VITALS: BP 117/66
--- NOTE | 2017-06-03 19:30 | NUR ---
PATIENT IN BED, AWAKE. DENIES NEEDS. DELIVERED HER MENU FOR HER TO COMPLETE.
--- NOTE | 2017-06-03 21:05 | NUR ---
ASSESSMENT AND HS MEDS COMPLETE. DENIES NEEDS. REFUSED SCHEDULED SENNOKOT-S. LAST BM WAS 06/02 AFTER MULTIPLE BOWEL MEDS AND 2 DAYS OF LOOSE STOOLS. SUGGESTED SHE RESTART HER SENNOKOT-S IN THE MORNING, ESPECIALLY IF SHE DOES NOT HAVE A BM BY NOON.
--- NOTE | 2017-06-03 22:10 | NUR ---
RESTING IN BED, EYES CLOSED.
--- NOTE | 2017-06-03 23:50 | NUR ---
RESTING QUIETLY IN BED, EYES CLOSED.
--- NOTE | 2017-06-04 02:00 | NUR ---
RESTING IN BED IN PARTIAL RIGHT SIDELYING POSITION. APPEARS COMFORTABLE.
--- NOTE | 2017-06-04 04:10 | NUR ---
RESTING QUIETLY IN BED, RESPIRATIONS UNLABORED.
--- NOTE | 2017-06-04 06:20 | NUR ---
GAVE PATIENT SCHEDULED PO MEDS AND ASSISTED HER UP TO BR VIA W/C. WILL CALL WHEN COMPLETED WITH TOILETING.
[2017-06-04 06:47] LABS: BASOPHILS 0.2 % (0-2); HEMOGLOBIN 11.6 g/dL (12-16); IMMATURE GRANULOCYTES 0.5 % (0-5); LYMPHOCYTES 16.7 % (15-50); MCH 29.9 pg (26.0-34.0); MCHC 33.1 g/dL (31.0-37.0); MCV 90.2 fL (80.0-100.0); MEAN PLATELET VOLUME 9.9 fL (7.4-10.4); MONOCYTES 9.7 % (2-11); NEUTROPHILS 71.9 % (40-80); PLATELET COUNT 322 10x3/uL (130-400); RBC 3.88 10x6/uL (4.00-5.40); RDW 14.6 % (11.5-14.5); WBC 6.2 10x3/uL (4.8-10.8)
[2017-06-04 07:09] LABS: ANION GAP 13.5 mmol/L (8-16); CALCIUM 9.4 mg/dL (8.5-10.1); CARBON DIOXIDE 26.6 mmol/L (21.0-32.0); CREATININE - SERUM 1.1 mg/dL (0.6-1.3); POTASSIUM - SERUM 4.1 mmol/L (3.5-5.1)
--- NOTE | 2017-06-04 10:20 | NUR ---
PT AM MEDS ADMINISTERED. PT DENIES NEEDS. WCTM.
--- NOTE | 2017-06-04 12:15 | NUR ---
PT EATING LUNCH, DENIES NEEDS. WCTM.
--- NOTE | 2017-06-04 13:49 | NUR ---
PATIENT DISCHARGING HOME WITH FAMILY. [facility] WILL PROVIDE THERAPY AT HOME. PATIENT CHOICE FORM FOR HOME HEALTH AND [facility] FORM SIGNED, EXPLAINED AND FILED IN CHART. PATIENT DENIES ANY NEED FOR DME. DR. TORRES 06/11/17 @ 11:00, DR. FLOWERS 06/30/17 @ 12:00. RECORDS HAVE BEEN FAXED WITH CONFORMATION RECIEVED.
--- NOTE | 2017-06-04 15:06 | NUR ---
PT DISCHARGED HOME WITH FAMILY. PT MEDS AND DISCHARGE INSTRUCTIONS REVIEWED. MEDS CALLED IN TO PHARMACY.
== END 2017-06-04 15:07 | disposition home health service (06) | DRG 551 ==
LOC: D.REHAB 18:30
PROVIDERS: ADMIT Emergency Medicine
DX: M48.061 Spinal stenosis, lumbar region without neurogenic claudication (principal); J95.821 Acute postprocedural respiratory failure; I50.21 Acute systolic (congestive) heart failure; D62 Acute posthemorrhagic anemia; J81.1 Chronic pulmonary edema; I11.0 Hypertensive heart disease with heart failure; M54.16 Radiculopathy, lumbar region; E03.9 Hypothyroidism, unspecified; R41.0 Disorientation, unspecified; I95.9 Hypotension, unspecified; R09.02 Hypoxemia; R55 Syncope and collapse; R53.83 Other fatigue; R53.1 Weakness; R06.01 Orthopnea; R19.7 Diarrhea, unspecified; K21.9 Gastro-esophageal reflux disease without esophagitis; M43.26 Fusion of spine, lumbar region

== ENCOUNTER → 2017-10-28 11:54 | Outpatient (CLI) | payer MEDICARE, OTHER | END | disposition home or self-care (01) | LOC: D.CT 11:54 | DX: S32.10XA Unspecified fracture of sacrum, initial encounter for closed fracture (principal); X58.XXXA Exposure to other specified factors, initial encounter; Y93.89 Activity, other specified; Y92.89 Other specified places as the place of occurrence of the external cause ==

== ENCOUNTER → 2017-11-11 09:44 | Outpatient (CLI) | payer MEDICARE, OTHER | END | disposition home or self-care (01) | LOC: D.NM 09:44 | DX: M25.552 Pain in left hip (principal); M25.551 Pain in right hip ==

== ENCOUNTER → 2020-03-23 18:05 | Outpatient (CLI) | payer MEDICARE, OTHER ==
[2020-03-23 18:39] LABS: BASOPHILS 0.2 % (0-2); EOSINOPHILS 0.9 % (0-7); HEMATOCRIT 37.6 % (36.0-48.0); HEMOGLOBIN 11.9 g/dL (12-16); IMMATURE GRANULOCYTES 0.2 % (0-5); LYMPHOCYTES 28.3 % (15-50); MCH 28.9 pg (26.0-34.0); MCHC 31.6 g/dL (31.0-37.0); MCV 91.3 fL (80.0-100.0); MEAN PLATELET VOLUME 10.4 fL (7.4-10.4); MONOCYTES 7.1 % (2-11); NEUTROPHILS 63.3 % (40-80); RBC 4.12 10x6/uL (4.00-5.40); RDW 12.9 % (11.5-14.5); WBC 4.5 10x3/uL (4.8-10.8)
[2020-03-23 18:42] LABS: PLATELET COUNT 180 10x3/uL (130-400)
[2020-03-23 19:27] LABS: % SATURATION 29 % (15-55); IRON 90 ug/dl (35-150); TOTAL IRON BIND CAPACITY 304 ug/dl (260-445); UNSAT IRON BIND CAPACITY 214 ug/dl (150-375)
[2020-03-23 19:31] LABS: FERRITIN 95 ng/mL (3-244)
[2020-03-23 19:32] LABS: C-REACTIVE PROTEIN < 0.2 mg/dL (0.0-0.9)
[2020-03-23 19:47] LABS: ERYTHROCYTE SEDIMENTATION RATE 11 mm/hr (0-30)
== END | disposition home or self-care (01) ==
LOC: D.LABREF 18:05
PROVIDERS: ATTEND Clinical Nurse Specialist Family Health
DX: K59.00 Constipation, unspecified (principal); R19.5 Other fecal abnormalities; D64.9 Anemia, unspecified; R63.4 Abnormal weight loss; R63.0 Anorexia; R11.0 Nausea

== ENCOUNTER 2020-12-06 15:31 | Inpatient (IN) | payer MEDICARE ==
[2020-12-06] VITALS (8 sets, daily range): BP systolic 112–142; BP diastolic 59–87; BMI 22.9
[~2020-12-06] VITALS: Ht 170.2 cm; Wt 62.0 kg
[2020-12-06 16:06] LABS: APTT 33.3 SECONDS (22.8-39.4); BASOPHILS 0.2 % (0-2); EOSINOPHILS 0.6 % (0-7); HEMATOCRIT 40.3 % (36.0-48.0); HEMOGLOBIN 12.7 g/dL (12-16); IMMATURE GRANULOCYTES 0.2 % (0-5); INR 1.23 (0.85-1.17); LYMPHOCYTE ABS# 1.98 10x3/uL (1.18-3.74); LYMPHOCYTES 18.5 % (15-50); MCH 28.8 pg (26.0-34.0); MCHC 31.5 g/dL (31.0-37.0); MCV 91.4 fL (80.0-100.0); MONOCYTES 3.1 % (2-11); NEUTROPHILS 77.4 % (40-80); PLATELET COUNT 194 10x3/uL (130-400); PROTIME 14.4 SECONDS (11.6-15.0); RBC 4.41 10x6/uL (4.00-5.40); RDW 14.1 % (11.5-14.5); WBC 10.7 10x3/uL (4.8-10.8)
[2020-12-06 16:07] LABS: CALC OSMOLALITY 285 mosm/kg (275-300); CALCIUM 8.6 mg/dL (8.5-10.1); CARBON DIOXIDE 22.9 mmol/L (21.0-32.0); CHLORIDE - SERUM 103 mmol/L (98-107); CREATININE - SERUM 1.2 mg/dL (0.6-1.3); GLUCOSE 229 mg/dL (74-106); POTASSIUM - SERUM 3.6 mmol/L (3.5-5.1); SODIUM 138 mmol/L (136-145); UREA NITROGEN 20 mg/dL (7-18); eGFR NON AFRICAN AMERICAN 46 mL/min (90-120)
[2020-12-06 16:24] LABS: ALBUMIN 3.4 g/dL (3.4-5.0); ALKALINE PHOSPHATASE 141 U/L (30-120); ALT (SGPT) 69 U/L (10-68); BILIRUBIN - TOTAL 0.52 mg/dL (0.2-1.3); CKMB 0.9 U/L (0.0-3.6); CREATINE KINASE 71 UL (21-215); MAGNESIUM - SERUM 2.1 mg/dL (1.8-2.4); PROTEIN - SERUM 6.8 g/dL (6.4-8.2); TROPONIN-I 0.029 ng/mL (0.000-0.060)
--- NOTE | 2020-12-06 18:34 | NUR ---
RECIEVED PT FROM ER STAFF AT 1805. HR 120'S BP IS 150/75. NOTIFIED DR HUNTER NEW ORDERS RECIEVED. PT POSITIONED FOR COMFORT WILL CONTINUE TO MONITOR.
[2020-12-06 22:47] LABS: CKMB 2.1 U/L (0.0-3.6); CREATINE KINASE 93 UL (21-215)
[2020-12-06 22:50] LABS: TROPONIN-I 0.186 ng/mL (0.000-0.060)
[2020-12-07] VITALS (23 sets, daily range): BP systolic 90–120; BP diastolic 46–77; Ht 170.2 cm; Wt 62.0 kg
[2020-12-07 04:41] LABS: BASOPHILS 0 % (0-2); EOSINOPHILS 0 % (0-7); HEMATOCRIT 40.2 % (36.0-48.0); HEMOGLOBIN 12.8 g/dL (12-16); IMMATURE GRANULOCYTES 0.2 % (0-5); LYMPHOCYTE ABS# 0.64 10x3/uL (1.18-3.74); LYMPHOCYTES 10.6 % (15-50); MCH 28.7 pg (26.0-34.0); MCHC 31.8 g/dL (31.0-37.0); MCV 90.1 fL (80.0-100.0); MEAN PLATELET VOLUME 11.4 fL (7.4-10.4); MONOCYTES 1.5 % (2-11); NEUTROPHIL ABS# 5.31 10x3/uL (1.56-6.13); NEUTROPHILS 87.7 % (40-80); PLATELET COUNT 180 10x3/uL (130-400); RBC 4.46 10x6/uL (4.00-5.40)
[2020-12-07 04:45] LABS: WBC 6.1 10x3/uL (4.8-10.8)
[2020-12-07 05:27] LABS: ALBUMIN 3.6 g/dL (3.4-5.0); ALKALINE PHOSPHATASE 148 U/L (30-120); BILIRUBIN - TOTAL 0.59 mg/dL (0.2-1.3); CARBON DIOXIDE 25.9 mmol/L (21.0-32.0); CHLORIDE - SERUM 102 mmol/L (98-107); CHOL - HDL RATIO 2.6 ratio (2.3-4.1); CHOLESTEROL, TOTAL 170 mg/dL (0-200); CKMB 2.5 U/L (0.0-3.6); CREATINE KINASE 79 UL (21-215); CREATININE - SERUM 1.3 mg/dL (0.6-1.3); HDL CHOLESTEROL 65 mg/dL (32-96); LDL CHOLESTEROL 88 mg/dL (0-100); LDL-HDL RATIO 1.4 ratio (1.5-3.5); MAGNESIUM - SERUM 1.8 mg/dL (1.8-2.4); PHOSPHOROUS 5.3 mg/dL (2.5-4.9); POTASSIUM - SERUM 3.4 mmol/L (3.5-5.1); PROTEIN - SERUM 7.4 g/dL (6.4-8.2); SODIUM 139 mmol/L (136-145); TRIGLYCERIDE 88 mg/dL (30-200); UREA NITROGEN 17 mg/dL (7-18); eGFR NON AFRICAN AMERICAN 42 mL/min (90-120)
[2020-12-07 05:37] LABS: ALT (SGPT) 109 U/L (10-68); CALC OSMOLALITY 281 mosm/kg (275-300); GLUCOSE 131 mg/dL (74-106)
--- NOTE | 2020-12-07 10:36 | NUR ---
UP TO BSC 2 PERSON ASSIST. C/O SOME DIZZINESS.
[2020-12-07 10:40] LABS: CKMB 1.8 U/L (0.0-3.6); CREATINE KINASE 72 UL (21-215)
[2020-12-07 10:42] LABS: TROPONIN-I 0.152 ng/mL (0.000-0.060)
[2020-12-07 12:03] LABS: BILIRUBIN NEGATIVE (NEGATIVE); KETONE NEGATIVE (NEGATIVE); NITRITE NEGATIVE (NEGATIVE); UROBILINOGEN NORMAL mg/dL (< 2)
[2020-12-08] VITALS (13 sets, daily range): BP systolic 92–132; BP diastolic 43–84
[2020-12-08 05:00] LABS: BASOPHILS 0 % (0-2); EOSINOPHILS 0 % (0-7); HEMATOCRIT 34.2 % (36.0-48.0); HEMOGLOBIN 11.1 g/dL (12-16); IMMATURE GRANULOCYTES 0.1 % (0-5); LYMPHOCYTE ABS# 0.52 10x3/uL (1.18-3.74); LYMPHOCYTES 6.5 % (15-50); MCH 28.7 pg (26.0-34.0); MCHC 32.5 g/dL (31.0-37.0); MCV 88.4 fL (80.0-100.0); MEAN PLATELET VOLUME 11.7 fL (7.4-10.4); MONOCYTES 2.5 % (2-11); NEUTROPHIL ABS# 7.25 10x3/uL (1.56-6.13); NEUTROPHILS 90.9 % (40-80); PLATELET COUNT 160 10x3/uL (130-400); RBC 3.87 10x6/uL (4.00-5.40); RDW 14.1 % (11.5-14.5)
[2020-12-08 05:38] LABS: ALBUMIN 3.1 g/dL (3.4-5.0); BILIRUBIN - TOTAL 0.39 mg/dL (0.2-1.3); CALCIUM 8.7 mg/dL (8.5-10.1); CARBON DIOXIDE 24.8 mmol/L (21.0-32.0); CREATININE - SERUM 1.4 mg/dL (0.6-1.3); MAGNESIUM - SERUM 2.1 mg/dL (1.8-2.4); PHOSPHOROUS 4.1 mg/dL (2.5-4.9); PROTEIN - SERUM 6.5 g/dL (6.4-8.2)
[2020-12-08 05:41] LABS: ANION GAP 14.7 mmol/L (8-16); POTASSIUM - SERUM 4.5 mmol/L (3.5-5.1)
--- NOTE | 2020-12-08 07:30 | NUR ---
L PIV LEAKING. IV IS PULLED, TIP INTACT. FLUIDS PUT TO R PIV.
--- NOTE | 2020-12-08 08:00 | NUR ---
UP TO BSC THEN TO CHAIR WITH MIN ASSIST.
--- NOTE | 2020-12-08 09:15 | NUR ---
DR. DALE VAZQUEZ. ORDERS RECEIVED.
--- NOTE | 2020-12-08 16:15 | NUR ---
CALLED PHARMA TO DISCUSS LOW VANC LEVEL. DOSE ADJUSTED.
--- NOTE | 2020-12-08 16:51 | NUR ---
CALLED DAUGHTER TO NOTIFY HER OF NEW ROOM NUMBER.
--- NOTE | 2020-12-08 17:08 | NUR ---
REPORT GIVEN TO DANA ON MED II.
--- NOTE | 2020-12-08 18:03 | NUR ---
PATIENT RECIEVED TO ROOM 2107. REPORTED FROM ICU THAT PATIENT DIAGNOSED WITH PNEMONIA. CARDIOMEGLY DIAGNOSIS NOTED. PATIENT IS CURRENTLY ON TELEMETRY, REPORTED THAT SHE WAS SR TO ST RUNNING 84. RESPIRATIONS EVEN AND UNLABORED. PATENT IV TO RIGHT WRIST WITH VANC RUNNING SATS 98 ON ROOM AIR. UP AT JOSE D WITH ASSIST. CONTINUES TO BE WEAK, BUT IS GETTING BETTER. NO SKIN ISSUES NOTED. BRUISING IN SEVERAL AREAS FROM IV STICKS. ALERT AND ORIENTED MOST TIMES SOME CONFUSION IN THE AM.
[2020-12-09 00:03] VITALS: BP 134/74
[2020-12-09 05:39] LABS: BASOPHILS 0 % (0-2); EOSINOPHILS 0 % (0-7); HEMATOCRIT 34.8 % (36.0-48.0); HEMOGLOBIN 11.2 g/dL (12-16); IMMATURE GRANULOCYTES 0.1 % (0-5); LYMPHOCYTE ABS# 0.57 10x3/uL (1.18-3.74); LYMPHOCYTES 6.9 % (15-50); MCH 28.2 pg (26.0-34.0); MCHC 32.2 g/dL (31.0-37.0); MCV 87.7 fL (80.0-100.0); MONOCYTES 3.5 % (2-11); NEUTROPHIL ABS# 7.37 10x3/uL (1.56-6.13); NEUTROPHILS 89.5 % (40-80); PLATELET COUNT 162 10x3/uL (130-400); RBC 3.97 10x6/uL (4.00-5.40); WBC 8.2 10x3/uL (4.8-10.8)
[2020-12-09 05:58] LABS: ALBUMIN 3.3 g/dL (3.4-5.0); ANION GAP 14.4 mmol/L (8-16); BILIRUBIN - TOTAL 0.44 mg/dL (0.2-1.3); CALCIUM 9.1 mg/dL (8.5-10.1); CARBON DIOXIDE 24.6 mmol/L (21.0-32.0); CREATININE - SERUM 1.2 mg/dL (0.6-1.3); MAGNESIUM - SERUM 2.4 mg/dL (1.8-2.4); PHOSPHOROUS 4.5 mg/dL (2.5-4.9); PROTEIN - SERUM 6.5 g/dL (6.4-8.2)
--- NOTE | 2020-12-09 07:40 | NUR ---
REPORT RECEIVED. PATIENT IS AAOX4, LYING IN SEMI-FOWLERS POSITION. NO S/S OF DISTRESS OBSERVE, RR EVEN AND UNLABORED ON ROOM AIR. PIV TO RT WRIST, PATENT, INFUSING ABX. NO NEEDS EXPRESSED AT THIS TIME. CL IN REACH, BED LOCKED AND LOWERED. WILL CPOC.
[2020-12-09 08:35] VITALS: BP 130/55; BP 135/82
[2020-12-09 12:32] VITALS: BP 119/73
[2020-12-09 16:20] VITALS: BP 138/74
[2020-12-09 20:21] VITALS: BP 125/67
[2020-12-10 00:15] VITALS: BP 115/66
[2020-12-10 04:56] VITALS: BP 131/77
[2020-12-10 06:26] LABS: BASOPHILS 0 % (0-2); EOSINOPHILS 0 % (0-7); HEMATOCRIT 40.1 % (36.0-48.0); HEMOGLOBIN 13.2 g/dL (12-16); IMMATURE GRANULOCYTES 0.1 % (0-5); LYMPHOCYTE ABS# 0.71 10x3/uL (1.18-3.74); LYMPHOCYTES 9.1 % (15-50); MCH 28.9 pg (26.0-34.0); MCHC 32.9 g/dL (31.0-37.0); MCV 87.9 fL (80.0-100.0); MEAN PLATELET VOLUME 11.3 fL (7.4-10.4); MONOCYTES 5.5 % (2-11); NEUTROPHIL ABS# 6.68 10x3/uL (1.56-6.13); NEUTROPHILS 85.3 % (40-80); PLATELET COUNT 180 10x3/uL (130-400); RBC 4.56 10x6/uL (4.00-5.40); RDW 14.1 % (11.5-14.5); WBC 7.8 10x3/uL (4.8-10.8)
[2020-12-10 06:50] LABS: ALBUMIN 3.6 g/dL (3.4-5.0); ANION GAP 16.7 mmol/L (8-16); BILIRUBIN - TOTAL 0.53 mg/dL (0.2-1.3); CALCIUM 9.6 mg/dL (8.5-10.1); CARBON DIOXIDE 26.7 mmol/L (21.0-32.0); CREATININE - SERUM 1.4 mg/dL (0.6-1.3); MAGNESIUM - SERUM 2.4 mg/dL (1.8-2.4); POTASSIUM - SERUM 3.4 mmol/L (3.5-5.1); PROTEIN - SERUM 7.3 g/dL (6.4-8.2)
[2020-12-10 06:56] LABS: PHOSPHOROUS 6.3 mg/dL (2.5-4.9)
--- NOTE | 2020-12-10 07:00 | NUR ---
REPORT RECEIVED. PATIENT IS LYING IN BED, RESTING WITH EYES CLOSED. NO S/S OF DISTRESS OBSERVED, RR EVEN AND UNLABORED ON ROOM AIR. PIV TO RT WRIST, PATENT, INFUSING NS @ KVO. NO NEEDS EXPRESSED AT THIS TIME. CL IN REACH, BED LOCKED AND LOWERED. WILL CPOC.
[2020-12-10 07:49] VITALS: BP 123/72
[2020-12-10 12:24] VITALS: BP 125/71
--- NOTE | 2020-12-10 12:37 | NUR ---
I have reviewed this patient and I concur with the Shift Assessment completed by the Licensed Practical Nurse today this shift.
[2020-12-10 15:53] VITALS: BP 116/73
[2020-12-10 20:22] VITALS: BP 122/74
[2020-12-11 00:48] VITALS: BP 118/62
[2020-12-11 04:27] VITALS: BP 124/76
[2020-12-11 05:25] VITALS: BP 124/76
[2020-12-11 06:28] LABS: BASOPHILS 0 % (0-2); EOSINOPHILS 0.2 % (0-7); HEMATOCRIT 39.6 % (36.0-48.0); HEMOGLOBIN 12.9 g/dL (12-16); IMMATURE GRANULOCYTES 0.2 % (0-5); LYMPHOCYTE ABS# 1.99 10x3/uL (1.18-3.74); LYMPHOCYTES 23.9 % (15-50); MCH 28.6 pg (26.0-34.0); MCHC 32.6 g/dL (31.0-37.0); MCV 87.8 fL (80.0-100.0); MEAN PLATELET VOLUME 10.9 fL (7.4-10.4); MONOCYTES 10.2 % (2-11); NEUTROPHIL ABS# 5.44 10x3/uL (1.56-6.13); NEUTROPHILS 65.5 % (40-80); PLATELET COUNT 182 10x3/uL (130-400); RBC 4.51 10x6/uL (4.00-5.40); RDW 13.8 % (11.5-14.5); WBC 8.3 10x3/uL (4.8-10.8)
[2020-12-11 06:44] LABS: ALBUMIN 3.5 g/dL (3.4-5.0); ANION GAP 14.3 mmol/L (8-16); BILIRUBIN - TOTAL 0.39 mg/dL (0.2-1.3); CALCIUM 9.2 mg/dL (8.5-10.1); CARBON DIOXIDE 24.3 mmol/L (21.0-32.0); CREATININE - SERUM 1.3 mg/dL (0.6-1.3); MAGNESIUM - SERUM 2.6 mg/dL (1.8-2.4); POTASSIUM - SERUM 3.6 mmol/L (3.5-5.1); PROTEIN - SERUM 7.1 g/dL (6.4-8.2)
[2020-12-11 08:42] VITALS: BP 135/77
--- NOTE | 2020-12-11 09:51 | NUR ---
PATIENT AAOX4 SITTING SEMI FOWLERS, RESP EVEN AND NON LABORED, NO S/S OF DISTRESS, MEDICATIONS ADMINISTERED WITH NO COMPLICATIONS, NO FURTHER NEEDS AT THIS TIME, DYLAN, MORRISP
--- NOTE | 2020-12-11 10:40 | NUR ---
PATIENT WALKED WITH CGA FOR 250 FEET WITHOUT DEVICE.
--- NOTE | 2020-12-11 12:25 | NUR ---
Nutrition Follow-up: Diet: 4gm Sodium + Ensure BID PO intake: 75-100% most meals; she states that her appetite is "alright." Last BM: 12/10/20 x3 Wt: 136# (12/08/20); Admit wt: 146# (12/06/20)- fluid loss? Meds noted: protonix, senokot, prednisone, probiotics, lasix Labs noted: GFR 42(L), PO4 5.0(H), Mag 2.6(H) Recommend: -Continue current diet. Will continue to honor food preferences within diet restrictions. -RD will re-assess 12/14/20.
--- NOTE | 2020-12-11 15:14 | NUR ---
I have reviewed this patient and I concur with the Shift Assessment completed by the Licensed Practical Nurse today this shift.
--- NOTE | 2020-12-11 20:24 | NUR ---
REPORT RECEIVED. PT A&O, UP IN BED WATCHING TV AND SPEAKING WITH CHUTE OPERATOR. NO S/S OF DISTRESS OBSERVED. RR EVEN & UNLABORED ON RA. R WRIST IV WITH NS @ KVO. SR 96 ON TELE. BED LOCKED AND LOWERED, CL IN REACH. ASSESSMENT COMPLETE. WILL CONT POC.
[2020-12-11 21:00] VITALS: BP 122/79; BP 138/61
[2020-12-12] VITALS: BP 121/74
[2020-12-12 04:00] VITALS: BP 114/74
[2020-12-12 04:43] LABS: BASOPHILS 0.3 % (0-2); EOSINOPHILS 0.5 % (0-7); HEMATOCRIT 41.4 % (36.0-48.0); HEMOGLOBIN 13.7 g/dL (12-16); LYMPHOCYTES 21.2 % (15-50); MCHC 33.2 g/dL (31.0-37.0); MCV 87.5 fL (80.0-100.0); MEAN PLATELET VOLUME 8.6 fL (7.4-10.4); MONOCYTES 8.6 % (2-11); NEUTROPHILS 69.4 % (40-80); PLATELET COUNT 198 10x3/uL (130-400); RBC 4.73 10x6/uL (4.00-5.40); RDW 13.6 % (11.5-14.5); WBC 9.1 10x3/uL (4.8-10.8)
[2020-12-12 05:11] LABS: ALBUMIN 3.6 g/dL (3.4-5.0); ANION GAP 13.4 mmol/L (8-16); BILIRUBIN - TOTAL 0.37 mg/dL (0.2-1.3); CALCIUM 9.3 mg/dL (8.5-10.1); CARBON DIOXIDE 28.2 mmol/L (21.0-32.0); CREATININE - SERUM 1.4 mg/dL (0.6-1.3); MAGNESIUM - SERUM 2.7 mg/dL (1.8-2.4); PHOSPHOROUS 4.9 mg/dL (2.5-4.9); POTASSIUM - SERUM 3.6 mmol/L (3.5-5.1); PROTEIN - SERUM 7.1 g/dL (6.4-8.2)
[2020-12-12 08:01] VITALS: BP 114/63
--- NOTE | 2020-12-12 11:20 | NUR ---
PATIENT AAOX4 SITTING HIGH FOLWERS, NO S/S OF DISTRESS, RESP EVEN AND NON LABORED, MEDICATIONS ADMISNITERED WITH NO COMPLICATIONS, NO FURTHER NEEDS AT THIS TIME, [place] RICHARDSON
[2020-12-12 12:00] VITALS: BP 108/70
--- NOTE | 2020-12-12 13:50 | NUR ---
PATIENT REFUSED, SAID SHE WASN'T FEELING WELL TODAY.
--- NOTE | 2020-12-12 14:07 | EC ---
PATIENT:WON DOWELL DATE OF SERVICE: 12/06/20 SEX: F MEDICAL RECORD: [id number] DATE OF : 38 LOCATION:D.M2 D.210 AGE OF PATIENT: 80 ADMISSION DATE: 12/06/20 REFERRING PHYSICIAN: INTERPRETING PHYSICIAN: AMY SWARTZ MD ECHOCARDIOGRAM REPORT ECHO CHARGES 4 ECHO COMPLETE Date: 12/07/20 CLINICAL DIAGNOSIS: ABNORMAL CXR, DYSPNEA, ELEVATED PRO-BNP, CP ECHOCARDIOGRAPHIC MEASUREMENTS (adult normal given) AC root (d.<3.7cm) 3.6 cm LV Septum d (<1.2 cm> 0.7 cm Valve Excursion 2.0 cm LV Septum (systole) 0.9 cm Left Atria (s.<4.0cm> 3.9 cm LVPW d(<1.2cm) 0.6 cm RV (d.<2.3cm) 2.4 cm LVPW (sytole) 0.7 cm LV diastole(<5.6CM) 5.6 cm MV E-F(>70mm/sec) cm LV systole 4.2 cm LVOT Diameter 1.9 cm MV exc.(>10mm) 1.6 cm Est.ejection fraction (50-75%) % DOPPLER: LVIT cm/sec A 28 cm/sec E 105 cm/sec LA cm/sec RVSP 28 mmHg LVOT 78 cm/sec AOP1/2T m/s Asc. Ao 110 cm/sec RVOT 83 cm/sec RA cm/sec PA 86 cm/sec AV Gradient Peak 4.9 mmHg AV Mean 3.3 mmHg AV Area 1.9 cm MV Gradient Peak 6.1 mmHg MV Mean 2.1 mmHg MV Area cm COMMENTS: Heel Caser: 5 [facility] Information Management Officer: 3 Dr. Castle TAPE# Pericardial Effusion Y DATE OF SERVICE: Adequate 2D, color-flow imaging, spectral Doppler, and M-Mode FINDINGS: No LVH. LV internal dimensions are upper limits of normal at 5.6 cm. LV is globally hypokinetic, reduced EF 30% to 35%. Aortic valve is tricuspid. No evidence of stenosis by Doppler interrogation. Left atrium is normal at 3.9 cm. Mitral valve shows no prolapse. Trace MR. Right-sided chambers are grossly normal. Mild TR. ECHOCARDIOGRAM REPORT [id number] WON DOWELL TRANSINT:[id number] Voice Confirmation ID: [id number] DOCUMENT ID: [id number] AMY SWARTZ MD at 1407 CC: [id number] DICTATION DATE: 12/07/201409 WOOD STOCK BLANK HANDLER: 12/07/20 1515 ADM IN [facility] [address] [place] [id number]
--- NOTE | 2020-12-12 14:50 | NUR ---
I have reviewed this patient and I concur with the Shift Assessment completed by the Licensed Practical Nurse today this shift.
[2020-12-12 16:15] VITALS: BP 102/52
[2020-12-12 18:40] VITALS: BP 115/61
--- NOTE | 2020-12-12 22:27 | NUR ---
1930-- PT SITTING UP IN BED WATCHING TV. ASKS WHEN SHE GETS TO GO HOME. CURRENT IV OUT OF DATE, NEW 20G RESITED TO LEFT FOREARM X1 STICK. TOLERATED WELL. C/O TOES ON RIGHT FOOT BEING COLD & NUMBNESS. NO FURTHER NEEDS VOICED.
[2020-12-13] VITALS: BP 122/58
[2020-12-13 04:00] VITALS: BP 108/62
--- NOTE | 2020-12-13 06:50 | NUR ---
PT LYING IN BED. RESP EVEN AND UNLABORED. AAO X4. DENIES NEEDS AT THIS TIME. CLIR. BED IN LOWEST POSITION. SIDE RAILS X2
[2020-12-13 07:49] VITALS: BP 106/60
[2020-12-13] MEDS ORDERED: LOPERAMIDE HCL2 MG PO (08:09)
[2020-12-13] MEDS ORDERED: FLAGYL500 MG PO (08:10)
[2020-12-13] MEDS ORDERED: LEVOFLOXACIN500 MG PO (08:10)
[2020-12-13] MEDS ORDERED: PREDNISONE10 MG PO (08:10)
--- NOTE | 2020-12-13 08:33 | MORECARE ---
CASE MANAGEMENT DISCHARGE SUMMARY PATIENT: WON DOWELL UNIT: [id number] ADM DATE: 12/06/20 AGE: 80 : 39 SEX: F ROOM/BED: D.210 AUTHOR: ZACARIAS,DOC PHYSICIAN: REFERRING PHYSICIAN: SHARON SHARMA MD DATE OF SERVICE: 12/13/20 Case Management Discharge Planning Summary DCP REVIEW SUMMARY ANTICIPATED D/C DATE: 12/13/2020 EXPECTED LOS : 7 CASE STATUS: DCP Initiated INITIAL REVIEW: 12/13/2020 INITIAL REVIEWER: Spring [employer] FINAL DISCHARGE DISPOSITION: : FINAL REVIEWER: FINAL REVIEW DATE: DCP [employer] Questions & Answers QUESTION: ANSWER : PATIENT: WON DOWELL I ENCOUNTER: [id number] MEDICAL RECORD#: [id number] ADMISSION DATE: 12/06/2020 DISCHARGE DATE: ATTENDING MD: SHARON REIS : AGE: 80 MARITAL STATUS: S DC PLAN ID: [id number] FACILITY: [facility] PRINTED ON: 12/13/20 8:33 CT All edits/amendments must be made on the electronic document DICTATION DATE: 12/13/20832 INSTRUMENTATION FITTER: DM 12/13/20832 RPT#: [id number] DC DATE: STATUS: ADM IN [facility] [address] [place] [address] END OF REPORT
--- NOTE | 2020-12-13 08:45 | MORECARE ---
CASE MANAGEMENT DISCHARGE SUMMARY PATIENT: WON DOWELL UNIT: [id number] ADM DATE: 12/06/20 AGE: 80 : 38 SEX: F ROOM/BED: D.9888 AUTHOR: ZACARIAS,DOC PHYSICIAN: REFERRING PHYSICIAN: SHARON SHARMA MD DATE OF SERVICE: 12/13/20 Case Management Discharge Planning Summary COMMENTS ENTERED DATE: 12/13/20 8:34 CT COMMENT TYPE: Discharge Planning REVIEWER: [facility] DC PLAN: Home ANTICIPATED DC NEEDS: No needs identified CM met with patient to complete initial dc planning assessment. CM educated patient on the CM role and verbal consent given by patient to complete assessment. CM verified patient's address, phone number, and emergency contact phone numbers. Patient lives at home, states "my daughter is with me most of the time". At discharge patient plans to return and feels this is a safe discharge. CM discussed availability of home health, rehab services, and medical equipment. Patient denied known discharge needs at this time. Transportation provider at discharge will be her daughter. CM will continue to follow and will assist as needed with dc plans/needs. DCP REVIEW SUMMARY ANTICIPATED D/C DATE: 12/13/2020 EXPECTED LOS : 7 CASE STATUS: DCP Initiated INITIAL REVIEW: 12/13/2020 INITIAL REVIEWER: [facility] FINAL DISCHARGE DISPOSITION: : FINAL REVIEWER: FINAL REVIEW DATE: DCP Focus Questions & Answers DCP Evaluation QUESTION: ANSWER Patient and/or caregiver agree upon recommended discharge plan? : Yes Patient's current cognitive status: : *Oriented to person, place, situation, time and present Patient's ability to cope with chronic illness : d. No chronic illness Patient gives permission to discuss discharge plans with: (name, relationship and number) : Tessa Stallworth - DTR - [phone] Functional screen assessment: : Basic needs can adequately be met by self Family / Caregiver's ability to cope with chronic illness: : a. Adequate (ability to meet patient's medical needs, ensures patient attends medical appts.) Physical Status: : Independent with ADL's Equipment needed for post hospitalization: : None Is there a likelihood that the patient will require additional services to return to the preadmission environment? : No Living Arrangements: : Home Alone with Support Results of this evaluation have been discussed with: : Patient Patient with capacity for self-care or can be cared for in same environment as prior to hospitalization? : Yes Living arrangements comments: : States her daughter, Tessa, stays with her most of the time Baseline cognitive status: : *Oriented to person, place, situation, time and present Physical environment modification needed / anticipated for discharge: : No Medication Management: : Patient states can afford medications Pharmacy name(s): : [facility] PCP is Dr. Lancaster Does Patient have transportation to get home and to follow-up medical appointments when discharged from the hospital? : Yes Would patient like to participate in any Care Coordination programs (if applicable): : Not applicable Does the patient have electricity at home? : Yes Does the patient have running water in their house? : Yes Equipment in use: : None Mental health screen: : No mental health history Abuse/Neglect: : None Resources / Services in place: : None DCP Re-evaluation QUESTION: ANSWER Would patient like to participate in any Care Coordination programs (if applicable): : Not applicable PATIENT: WON DOWELL I ENCOUNTER: [id number] MEDICAL RECORD#: [id number] ADMISSION DATE: 12/06/2020 DISCHARGE DATE: ATTENDING MD: SHARON REIS : AGE: 80 MARITAL STATUS: S DC PLAN ID: [id number] FACILITY: [facility] PRINTED ON: 12/13/20 8:44 CT All edits/amendments must be made on the electronic document DICTATION DATE: 12/13/20843 CADDY: ANDER 12/13/2044 RPT#: [id number] DC DATE: STATUS: ADM IN [facility] [address] [place] [address] END OF REPORT
--- NOTE | 2020-12-14 19:36 | MORECARE ---
CASE MANAGEMENT DISCHARGE SUMMARY PATIENT: WON DOWELL UNIT: [id number] ADM DATE: 12/06/20 AGE: 80 : 39 SEX: F ROOM/BED: D.6308 AUTHOR: ZACARIAS,DOC PHYSICIAN: REFERRING PHYSICIAN: SHARON SHARMA MD DATE OF SERVICE: 12/14/20 Case Management Discharge Planning Summary COMMENTS ENTERED DATE: 12/13/20 8:34 CT COMMENT TYPE: Discharge Planning REVIEWER: [facility] DC PLAN: Home ANTICIPATED DC NEEDS: No needs identified CM met with patient to complete initial dc planning assessment. CM educated patient on the CM role and verbal consent given by patient to complete assessment. CM verified patient's address, phone number, and emergency contact phone numbers. Patient lives at home, states "my daughter is with me most of the time". At discharge patient plans to return and feels this is a safe discharge. CM discussed availability of home health, rehab services, and medical equipment. Patient denied known discharge needs at this time. Transportation provider at discharge will be her daughter. CM will continue to follow and will assist as needed with dc plans/needs. DCP REVIEW SUMMARY ANTICIPATED D/C DATE: 12/13/2020 EXPECTED LOS : 7 CASE STATUS: DCP Initiated INITIAL REVIEW: 12/13/2020 INITIAL REVIEWER: [facility] FINAL DISCHARGE DISPOSITION: : FINAL REVIEWER: FINAL REVIEW DATE: DCP Focus Questions & Answers DCP Evaluation QUESTION: ANSWER Patient and/or caregiver agree upon recommended discharge plan? : Yes Patient's current cognitive status: : *Oriented to person, place, situation, time and present Patient's ability to cope with chronic illness : d. No chronic illness Patient gives permission to discuss discharge plans with: (name, relationship and number) : Tessa Stallworth - DTR - [phone] Functional screen assessment: : Basic needs can adequately be met by self Family / Caregiver's ability to cope with chronic illness: : a. Adequate (ability to meet patient's medical needs, ensures patient attends medical appts.) Physical Status: : Independent with ADL's Equipment needed for post hospitalization: : None Is there a likelihood that the patient will require additional services to return to the preadmission environment? : No Living Arrangements: : Home Alone with Support Results of this evaluation have been discussed with: : Patient Patient with capacity for self-care or can be cared for in same environment as prior to hospitalization? : Yes Living arrangements comments: : States her daughter, Tessa, stays with her most of the time Baseline cognitive status: : *Oriented to person, place, situation, time and present Physical environment modification needed / anticipated for discharge: : No Medication Management: : Patient states can afford medications Pharmacy name(s): : [facility] PCP is Dr. Lancaster Does Patient have transportation to get home and to follow-up medical appointments when discharged from the hospital? : Yes Would patient like to participate in any Care Coordination programs (if applicable): : Not applicable Does the patient have electricity at home? : Yes Does the patient have running water in their house? : Yes Equipment in use: : None Mental health screen: : No mental health history Abuse/Neglect: : None Resources / Services in place: : None DCP Re-evaluation QUESTION: ANSWER Would patient like to participate in any Care Coordination programs (if applicable): : Not applicable PATIENT: WON DOWELL I ENCOUNTER: [id number] MEDICAL RECORD#: [id number] ADMISSION DATE: 12/06/2020 DISCHARGE DATE: 12/13/2020 ATTENDING MD: SHARON REIS : AGE: 80 MARITAL STATUS: S DC PLAN ID: [id number] FACILITY: [facility] PRINTED ON: 12/14/20 19:36 CT All edits/amendments must be made on the electronic document DICTATION DATE: 12/14/201935 SOLUTION MIXER: ANDER 12/14/201935 RPT#: [id number] DC DATE:12/13/20 STATUS: DIS IN [facility] [address] [place] [address] END OF REPORT
== END 2020-12-13 11:10 | disposition home or self-care (01) | DRG 871 ==
LOC: D.ER 15:31 → D.ICU 16:48 → D.M2 16:48 → D.MS 16:48 → D.ICU 17:12 → D.M2 12-08 17:37
PROVIDERS: Family Medicine; ADMIT Emergency Medicine; ATTEND Emergency Medicine
PROC: 5A09457 Assistance with Respiratory Ventilation, 24-96 Consecutive Hours, Continuous Positive Airway Pressure (ICD-10-PCS; principal; 2020-12-06)
DX: A41.9 Sepsis, unspecified organism (principal); J96.01 Acute respiratory failure with hypoxia; I50.23 Acute on chronic systolic (congestive) heart failure; I21.A1 Myocardial infarction type 2; J69.0 Pneumonitis due to inhalation of food and vomit; J45.901 Unspecified asthma with (acute) exacerbation; I11.0 Hypertensive heart disease with heart failure; E78.5 Hyperlipidemia, unspecified; E03.9 Hypothyroidism, unspecified; K21.9 Gastro-esophageal reflux disease without esophagitis; I08.1 Rheumatic disorders of both mitral and tricuspid valves; I44.7 Left bundle-branch block, unspecified; E87.6 Hypokalemia

== ENCOUNTER → 2021-01-10 07:52 | Outpatient (CLI) | payer MEDICARE, OTHER ==
[2020-12-07 09:55] VITALS: BMI 22.9
--- NOTE | 2020-12-13 11:10 | NUR ---
PT DC HOME WITH FAMILY MEMBER. IV DC. IV CATH TIP INTACT. DC INSTRUCTIONS PROVIDED VERBALLY AND WRITTEN. PT VERBALIZED UNDERSTANDING
[~2021-01-10 07:52] MED LIST changes: +FLAGYL500 MG PO; +LEVOFLOXACIN500 MG PO; +LOPERAMIDE HCL2 MG PO; +PREDNISONE10 MG PO
== END | disposition home or self-care (01) ==
LOC: D.RT 07:52
PROVIDERS: ATTEND Internal Medicine Pulmonary Disease
DX: J18.9 Pneumonia, unspecified organism (principal); I50.9 Heart failure, unspecified